=== PATIENT | female | born 1930 | race African-American/Black ===

== ENCOUNTER 2019-03-22 13:06 | Inpatient (IN) | payer MEDICARE, MEDICAID ==
[2019-03-22] MEDS ORDERED: Aspirin Chewable 81 MG TAB ONE (13:30)
[2019-03-22] MEDS ORDERED: Nitroglycerin 2% Ointment 1 INCH/1 GM Packet ONE (13:30)
[2019-03-22] MEDS ORDERED: Ondansetron PF 4 MG/2 ML Vial ONE (13:30)
--- NOTE | 2019-03-22 13:55 | CT ---
Exam: Head CT without contrast HISTORY: 8. Hypertension. Nausea and generalized weakness. COMPARISON: 08/20/2016 FINDINGS: Hemorrhage: No intraparenchymal hemorrhage or extra-axial hematoma. Brain parenchyma: Cortical brown-white matter differentiation is preserved. No mass effect or midline shift. Basilar cisterns are patent. Ventricular system: Ventricles and sulci are patent and symmetric. Calvarium: Intact. Sinuses and mastoid air cells: Adequate aeration. IMPRESSION: No acute intracranial process.
[2019-03-22 14:00] LABS: #Basophils 0.1 thou/uL (0.0-0.2); #Eosinphils 0.1 thou/uL (0.0-0.7); #Lymphocytes 1.2 thou/uL (1.20-3.40); #Monocytes 0.3 thou/uL (0.11-0.59); #Neutrophils 5.3 thou/uL (1.40-6.50); %Basophils 0.7 % (0.0-1.0); %Eosinophils 1.3 % (0.0-10.0); %Lymphocytes 17.8 % (21.0-51.0); %Monocytes 4.4 % (0.0-10.0); %Neutrophils 75.8 % (42.0-75.0); Hemoglobin 8.7 g/dL (12.0-16.0); Mean Corpuscular HGB CONC 32.2 g/dL (32.0-36.0); Mean Corpuscular Hemoglobin 28.6 pg (27.0-31.0); Mean Corpuscular Volume 88.9 fL (78.0-98.0); Mean Platelet Volume 8.9 fL (7.4-10.4); Platelet Count 237 thou/uL (130-400); RBC Distribution Width 15.1 % (11.5-14.5); Red Blood Cell (RBC) Count 3.05 mill/uL (4.20-5.40); White Blood Cell (WBC) Count 6.9 thou/uL (4.8-10.8)
[2019-03-22 14:14] LABS: ALT (SGPT) Less than 7 U/L (8-55); AST (SGOT) 11 U/L (5-34); Albumin 3.4 g/dL (3.4-4.8); Alkaline Phosphatase 66 U/L (40-110); Anion Gap 11 mmol/L (10-20); BUN (Urea Nitrogen) 30 mg/dL (9.8-20.1); Bilirubin, Total 0.3 mg/dL (0.2-1.2); Calc. Creatinine Clearance 0 mL/min (70-130); Carbon Dioxide 23 mmol/L (23-31); Chloride 113 mmol/L (98-107); Estimated GFR-MDRD 45; Globulin 3.5 g/dL (2.4-3.5); Glucose 113 mg/dL (83-110); Potassium 4.3 mmol/L (3.5-5.1); Protein, Total 6.9 g/dL (6.0-8.3); Sodium 143 mmol/L (136-145)
--- NOTE | 2019-03-22 14:22 | RAD ---
PA AND LATERAL VIEWS CHEST: Date: 03/22/19 HISTORY: Chest pain, nausea, generalized weakness. FINDINGS: Comparison made with exam of 11/23/16. There are changes of median sternotomy. The heart size is borderline. The aorta is tortuous. The lung s are expanded without lobar consolidation, pneumothoraces, cyril pulmonary edema, or pleural effusio ns. There are degenerative changes in the spine. There are postop changes of valvular replacement. IMPRESSION: No radiographic evidence of acute cardiopulmonary process. POS: TPC
[2019-03-22] MEDS ORDERED: Ondansetron ODT 4 MG TAB SL PRN (20:41)
[2019-03-22] MEDS ORDERED: Ondansetron PF 4 MG/2 ML Vial IVP PRN (20:41)
[2019-03-22] MEDS ORDERED: Labetalol HCl 100 MG/20 ML VIAL SLOW IVP PRN (20:42)
[2019-03-22 21:04] VITALS: BMI 27.5
[2019-03-22 21:28] LABS: Hemoglobin 9.3 g/dL (12.0-16.0)
[2019-03-22 22:04] LABS: CKMB 1.7 ng/mL (0-6.6)
[2019-03-22] MEDS ORDERED: Acetaminophen 325 MG TAB PO PRN (23:44)
[2019-03-22] MEDS ORDERED: Acetaminophen 650 MG Suppository PR PRN (23:44)
[2019-03-22] MEDS ORDERED: hydrALAZINE 20 MG/ML VIAL SLOW IVP SCH (23:45)
[2019-03-22] MEDS ORDERED: Amlodipine 5 MG TAB PO SCH ×2 (23:45)
[2019-03-23] MEDS ORDERED: Dextrose 50% Abboject 50 ML SYRINGE SLOW IVP PRN (00:42)
[2019-03-23] MEDS ORDERED: HumaLOG 300 UNITS/3 ML VIAL SC PRN ×2 (00:42)
[2019-03-23] MEDS ORDERED: Dextrose 5% in Water 1,000 ML IV PRN (00:42)
--- NOTE | 2019-03-23 01:32 | HP ---
TIME OF ASSESSMENT: 2100. PRIMARY CARE PHYSICIAN: Dr. Willis. CHIEF COMPLAINT: Chest pain. HISTORY OF PRESENT ILLNESS: Ms. Carson is a very pleasant 88-year-old woman, who presents after experiencing chest pain. The patient states she had pain since she woke up this morning and states it remained constant. It was in the center of her chest. She also reports abdominal bloating, but denies any associated nausea or vomiting. Denies any difficulty breathing. Did not experience any associated diaphoresis. She states the pain was nonradiating and she states she is unable to describe it nor rate how severe it was. She states it frightened her enough to call EMS and while en route, she does not recall if she was given any medications, but she states on arrival to the emergency department, the pain had subsided. It has not recurred since then. She reports feeling hunger pains at this present time with mild nausea. Denies having any cough or hemoptysis. Denies having any trauma to her chest. Reports having headaches on and off for the last couple of days with occasional dizziness which she attributes to her elevated blood pressure. The patient states she has been compliant with her medications. Reports being seen by trust and estates paralegal in the past, but cannot recall his name. PAST MEDICAL HISTORY: 1. Coronary artery disease. 2. Diabetes mellitus, insulin-dependent. 3. Hyperlipidemia. 4. Hypertension. 5. Dementia. 6. Reports having a tumor in her abdomen, which was removed. PAST SURGICAL HISTORY: 1. CABG. 2. Tumor excised from abdomen. SOCIAL HISTORY: The patient lives alone. Denies any alcohol consumption or illicit drug use. Denies any history of tobacco use. She mobilizes independently without the use of assistive devices. FAMILY HISTORY: Noncontributory. ALLERGIES: NO KNOWN DRUG ALLERGIES. CURRENT MEDICATIONS: 1. Allopurinol. 2. Amlodipine besylate. 3. Aspirin. 4. Donepezil. 5. Uloric. 6. Gabapentin. 7. Integra. 8. Levothyroxine. 9. Simvastatin. PHYSICAL EXAMINATION: GENERAL: The patient appears well developed, well nourished. She is resting comfortably in bed and is in no acute distress. VITAL SIGNS: Temperature 98.1, pulse 52, respirations 18, O2 saturation 100% on room air. Blood pressure at the time of assessment was documented as 108/75. Since then, this was corrected at 2300 to 180/75. HEENT: Normocephalic and atraumatic. Pupils are equal, round, reactive to light. Sclerae without icterus. Oropharynx is clear. NECK: Supple. LUNGS: Clear to auscultation bilaterally. CARDIAC: Notable for a click. S1 and S2. No chest wall tenderness. ABDOMEN: Soft, nontender, nondistended. Normoactive bowel sounds present. No guarding or rigidity. No renal angle tenderness. EXTREMITIES: No lower leg swelling or edema. NEUROLOGIC: Alert and oriented x3. SKIN: Without rash or jaundice. LABORATORY DATA: White blood count 6.9, hemoglobin done at noon was 8.7, hematocrit 27.1, platelets 237. Sodium 143, potassium 4.3, chloride 113, anion gap 11, BUN 30, creatinine 1.34. GFR 45, which appears to be at baseline. Glucose 113, calcium 9. LFTs unremarkable. BNP 227.9. IMAGING STUDIES: The patient did have an EKG done in the emergency department showing normal sinus with a heart rate of 54. No ST changes or T-wave abnormalities. Chest x-ray done on 03/22/2019, showed no radiographic evidence of acute cardiopulmonary process. CT of the brain was done as well showing no acute intracranial process. Apparently, this was due to hypertension associated with nausea and generalized weakness. IMPRESSION AND PLAN: Ms. Carson is a very pleasant 88-year-old woman, who has been referred for management of the following. 1. Chest pain rule out. EKG was normal in the ED. She was given 324 mg of aspirin as well as Nitro-Bid 1 inch. The patient remains pain free and has had no recurring pain since medications given. Initial troponin was checked by the emergency department at 1333. No further troponins checked since then; therefore, I did add a stat troponin and will continue to trend. Stress test ordered. We will initiate gentle hydration given underlying chronic kidney disease, which appears to be at baseline. 2. Headache with nausea. The patient underwent a CT of the head, which was unremarkable. I did receive notification from the nurse regarding elevated blood pressure of 171/74 at 2356. The patient was given evening dose of her amlodipine. It was at that time that the nurse verified the previously documented low blood pressure of 108/75 was incorrect and in fact 180/75. The amlodipine was not given until blood pressure was reconfirmed. 3. Dizziness. I was notified at 2356 that the patient did complain of some lightheadedness when going to the bathroom. I have added orthostatic blood pressures. Again, she will be receiving gentle IV hydration. She is currently on continuous telemetry monitoring. Urinalysis and urine culture added on. She had a low hemoglobin of 8.7 on initial blood tests, therefore that was repeated and stayed essentially stable at 9.3. We will continue to monitor. The patient without any signs or symptoms of bleeding. 4. Diabetes mellitus. Insulin sliding scale has been initiated. Monitor blood glucose. 5. Hyperlipidemia. Resume home medications. Lipid panel to be checked in the morning. 6. Gastrointestinal prophylaxis with famotidine. 7. Deep venous thrombosis prophylaxis with mechanical SCDs. 8. Code status, full. Surrogate decision maker is her niece, Laura Henry. The patient's case to be discussed with attending for further recommendations. Job ID: [id number]
[2019-03-23] MEDS: Sodium Chloride 0.9% 1,000 ML IV SCH ×2 (01:48→21:07)
[2019-03-23 01:59] LABS: CKMB 1.8 ng/mL (0-6.6)
[2019-03-23 04:41] LABS: #Basophils 0.1 thou/uL (0.0-0.2); #Eosinphils 0.2 thou/uL (0.0-0.7); #Lymphocytes 1.6 thou/uL (1.20-3.40); #Monocytes 0.4 thou/uL (0.11-0.59); #Neutrophils 3.8 thou/uL (1.40-6.50); %Basophils 1.1 % (0.0-1.0); %Monocytes 6.9 % (0.0-10.0); %Neutrophils 62.9 % (42.0-75.0); Hemoglobin 7.9 g/dL (12.0-16.0); Mean Corpuscular HGB CONC 30.9 g/dL (32.0-36.0); Mean Corpuscular Hemoglobin 27.6 pg (27.0-31.0); Mean Corpuscular Volume 89.3 fL (78.0-98.0); Platelet Count 238 thou/uL (130-400); RBC Distribution Width 15.1 % (11.5-14.5); Red Blood Cell (RBC) Count 2.85 mill/uL (4.20-5.40); White Blood Cell (WBC) Count 6.1 thou/uL (4.8-10.8)
[2019-03-23 05:06] LABS: Anion Gap 10 mmol/L (10-20); BUN (Urea Nitrogen) 31 mg/dL (9.8-20.1); Calc. Creatinine Clearance 33 mL/min (70-130); Calcium 8.6 mg/dL (7.8-10.44); Carbon Dioxide 24 mmol/L (23-31); Cardiac Risk 3.6 (Less than 4.5); Chloride 112 mmol/L (98-107); Cholesterol 195 mg/dl (< 200 Desired); Estimated GFR-MDRD 46; Glucose 160 mg/dL (83-110); HDL Cholesterol 54 mg/dL (>60 Neg Risk); Iron 35 ug/dL (50-170); Iron Binding Capacity, Total 251 mcg/dL (265-497); LDL Cholesterol, Calculated 122 mg/dL; Sodium 142 mmol/L (136-145); Triglycerides 94 mg/dL (Less than 150)
[2019-03-23 05:23] LABS: Ferritin 22.48 ng/mL (10-291); Thyroid Stimulating Hormone 1.1089 uIU/mL (0.35-4.94)
[2019-03-23] MEDS: Levothyroxine Sodium 50 MCG TAB PO SCH (05:52)
[2019-03-23 07:48] LABS: Bacteria/HPF 1+ HPF (None Seen); Bilirubin Negative (Negative); Blood, Urine Negative (Negative); Clarity Clear (Clear); Glucose, Urine (Dipstick) Normal (Negative); Leukocyte 250 Leu/uL (Negative); Nitrite Negative (Negative); Protein, Urine (Dipstick) Negative (Neg-Trace); RBC/HPF 0-3 HPF (0-3); Urobilinogen Normal mg/dL (Less than 2); WBC/HPF 21-50 HPF (0-3)
[2019-03-23 07:49] LABS: Urine Culture Reflex No No
[2019-03-23] MEDS ORDERED: Amlodipine 5 MG TAB PO SCH (09:00)
[2019-03-23] MEDS ORDERED: Aspirin 325 MG TAB PO SCH (09:00)
[2019-03-23] MEDS: Allopurinol 100 MG TAB PO SCH (09:26)
[2019-03-23] MEDS: Multivitamin W/ Minerals 1 TAB PO SCH (09:26)
[2019-03-23] MEDS: Gabapentin 300 MG CAP PO SCH ×2 (09:27→21:06)
[2019-03-23] MEDS: Donepezil HCl 10 MG TAB PO SCH (09:27)
[2019-03-23] MEDS: Famotidine/PF 20 mg/2ml Vial SLOW IVP SCH (09:28)
[2019-03-23] MEDS: Febuxostat 40 MG TAB PO SCH (09:28)
[2019-03-23] MEDS: Iron, Sodium Ferric Gluconate 250 MG in Sodium Chloride 0.9% 100 ML IVPB SCH (15:44)
[2019-03-23] MEDS: hydrALAZINE 20 MG/ML VIAL SLOW IVP PRN ×2 (16:31→21:06)
--- NOTE | 2019-03-23 17:19 | CON ---
DATE OF CONSULTATION: 03/23/2019 REASON FOR CONSULTATION: Chest pain. HISTORY OF PRESENT ILLNESS: Ms. Erick Carson is a very pleasant 88-year-old woman. She has a history of aortic valve replacement and coronary artery bypass grafting in the past. Yesterday, she complained of some pain in the middle of her chest and also reported abdominal bloating. No nausea or vomiting. The patient does appear to have some dementia, now she tells me she can actually remember having chest pain yesterday. She called the EMS and was brought to the hospital. The patient did not get breakfast or has not had lunch at 1:30 in the afternoon and she said she is hungry and she wants to eat. PAST MEDICAL HISTORY: 1. Coronary artery disease. 2. Previous aortic valve replacement for aortic stenosis. 3. Diabetes. 4. Hypertension. 5. Dementia. The patient states that she has a physician in [place], but does not know, the last time she saw the physician, or what his name is. PAST SURGICAL HISTORY: 1. She did undergo surgery in 12/2010. 2. She had an aortic valve replacement with a #21 Magna valve (bioprosthetic). 3. Bypass x2, internal mammary to distal LAD and a saphenous vein graft to an obtuse marginal. The posterolateral branch is very small and not felt to be amenable to bypass and also a limited amount of conduit. SOCIAL HISTORY: She lives with her niece. She says that her niece takes care of the house and cooks for her. The patient states she is unable to get up and around much due to "my head and my legs." She said she does not really get around very much at all. FAMILY HISTORY: Noncontributory. ALLERGIES: NONE KNOWN. CURRENT MEDICATIONS: 1. Allopurinol. 2. Amlodipine. 3. Aspirin. 4. Uloric. 5. Gabapentin. 6. Simvastatin. 7. Levothyroxine. PHYSICAL EXAMINATION: GENERAL: This is a very pleasant elderly woman, very cooperative. VITAL SIGNS: Her blood pressure is high at 172/72, pulse is in the 50s and at times in the 40s, she did have a 2-second pause. MENTAL STATUS: She is very cooperative. She knows her name. She knows she is in the hospital in [place], but does not know the name. She does not know what year it is or what month. NECK: Her neck veins are normal. Carotid had normal upstrokes and no bruits. LUNGS: Clear. CARDIAC: Normal S1 and normal S2. ABDOMEN: Soft and nontender. EXTREMITIES: Warm and dry. No clubbing or cyanosis. There is no edema. PERIPHERAL PULSES: The femoral pulses are palpable, but very difficult to feel, but I do not feel popliteal or posterior tibial pulses or dorsalis pedis pulses. PERTINENT LABORATORY DATA: Hemoglobin is 8.7 on admission and 7.9 this morning. Creatinine 1.33 and estimated GFR 45 reported, which would correlate with stage 3 renal failure. EKG; sinus bradycardia, T-wave inversions in the inferior leads. The patient's most recent LDL cholesterol is 122. Troponin is indeterminate at 0.043. ASSESSMENT: 1. Coronary artery disease, previous bypass surgery and internal mammary to the LAD, saphenous vein graft to marginal branch in 2000. 2. Previous aortic valve replacement with bioprosthetic valve for aortic stenosis. 3. Chest pain, but the patient does not recall having that now. 4. Some element of sick sinus syndrome. 5. Indeterminate troponin. 6. Anemia, which appears iron deficient. The ferritin is low at 22.48. 7. Peripheral vascular disease with decreased peripheral pulses. 8. Dementia. The patient is oriented to person and she knows she is in the hospital in [place]. She does not know the name, does not know the date or the year. PLAN: 1. Echocardiogram is pending. 2. Continue aspirin. 3. Continue statin. 4. Intravenous iron for iron-deficiency anemia. 5. Further recommendations based on hospital course and also discussing goals of therapy with the family. Tentatively, we will schedule for stress testing tomorrow to see if there is evidence of stress-induced ischemia. Job ID: [id number]
--- NOTE | 2019-03-23 18:34 | PDOC.HOSPP ---
- Subjective Subjective: Doing well. No complaints. Denies CP. - Objective Vital Signs & Weight: Vital Signs (12 hours) Temp Pulse Pulse Pulse Resp BP BP 03/23/19 17:16 03/23/19 15:44 98.2 F 92 17 03/23/19 10:57 97.4 F L 56 L 14 03/23/19 08:53 63 55 L 149/65 H 140/63 03/23/19 07:45 98.5 F 58 L 20 BP Pulse Ox 03/23/19 17:16 160/72 H 03/23/19 15:44 187/94 H 100 03/23/19 10:57 172/72 H 100 03/23/19 08:53 03/23/19 07:45 121/57 L 99 Weight Weight 158 lb I&O: 03/22/19 03/23/19 03/24/19 06:59 06:59 06:59 Intake Total 1664 Output Total 400 Balance 1264 Result Diagrams: 03/23/19 03:51 03/23/19 03:51 Additional Labs: Accuchecks 03/23/19 03/23/19 03/23/19 16:08 11:06 05:52 POC Glucose 149 H 119 H 132 H Hospitalist ROS - Medication Medications: Active Medications Generic Name Dose Route Start Last Admin Trade Name Simba PRN Reason Stop Dose Admin Allopurinol 100 mg 03/23/19 09:00 03/23/19 09:26 Zyloprim PO 100 mg DAILY TYRONE Administration Donepezil HCl 10 mg 03/23/19 09:00 03/23/19 09:27 Aricept PO 10 mg DAILY TYRONE Administration Famotidine 20 mg 03/23/19 09:00 03/23/19 09:28 Pepcid SLOW IVP 20 mg QAM TYRONE Administration Febuxostat 40 mg 03/23/19 09:00 03/23/19 09:28 Uloric PO 40 mg DAILY TYRONE Administration Gabapentin 300 mg 03/23/19 09:00 03/23/19 09:27 Neurontin PO 300 mg BID TYRONE Administration Hydralazine HCl 10 mg 03/23/19 16:10 03/23/19 16:31 Apresoline SLOW IVP 10 mg Q4H PRN Administration Hypertension Sodium Chloride 1,000 mls @ 50 mls/hr 03/23/19 01:00 03/23/19 01:48 Normal Saline 0.9% IV 1,000 mls .Q20H TYRONE Administration Ferric Sodium Gluconate 120 mls @ 60 mls/hr 03/23/19 14:00 03/23/19 15:44 Complex 250 mg/ Sodium IVPB 03/24/19 03:59 120 mls Chloride 0200,1400 TYRONE Administration Iron/Minerals/Multivitamins 1 tab 03/23/19 09:00 03/23/19 09:26 Theragran M PO 1 tab DAILY TYRONE Administration Levothyroxine Sodium 50 mcg 03/23/19 06:00 03/23/19 05:52 Synthroid PO 50 mcg 0600 TYRONE Administration - Exam General Appearance: NAD, awake alert Heart: RRR, murmur present (Systolic, LLSB), II/IV Respiratory: CTAB, no wheezes, no rales, no ronchi, normal chest expansion, no tachypnea, normal percussion Gastrointestinal: soft, non-tender, non-distended, normal bowel sounds, no palpable masses, no hepatomegaly, no splenomegaly, no bruit Skin: normal turgor Musculoskeletal: normal tone Psychiatric: normal affect Psychiatric - other findings: slight confusion Hosp A/P (1) Chest pain Code(s): R07.9 - CHEST PAIN, UNSPECIFIED Status: Acute (2) CAD (coronary artery disease) Code(s): I25.10 - ATHSCL HEART DISEASE OF [place] CORONARY ARTERY W/O ANG PCTRS Status: Chronic (3) Dementia Code(s): F03.90 - UNSPECIFIED DEMENTIA WITHOUT BEHAVIORAL DISTURBANCE Status: Chronic (4) Diabetes mellitus type 2, uncontrolled, with complications Code(s): E11.8 - TYPE 2 DIABETES MELLITUS WITH UNSPECIFIED COMPLICATIONS; E11.65 - TYPE 2 DIABETES MELLITUS WITH HYPERGLYCEMIA Status: Chronic (5) HLD (hyperlipidemia) Code(s): E78.5 - HYPERLIPIDEMIA, UNSPECIFIED Status: Chronic (6) Hypertension Code(s): I10 - ESSENTIAL (PRIMARY) HYPERTENSION Status: Chronic (7) Hypothyroid Code(s): E03.9 - HYPOTHYROIDISM, UNSPECIFIED Status: Chronic (8) CKD (chronic kidney disease), stage III Code(s): N18.3 - CHRONIC KIDNEY DISEASE, STAGE 3 (MODERATE) Status: Acute (9) Aortic valve prosthesis present Code(s): Z95.2 - PRESENCE OF PROSTHETIC HEART VALVE Status: Acute - Plan Followed by Dr. Pablo. Presently stable with no CP. Stress test planned for tomorrow. Echo looks pretty good overall. Continue Statin Continue Levothyroxine. Continue amlodipine.
[2019-03-23] MEDS: Atorvastatin Calcium 20 MG TAB PO SCH (21:06)
[2019-03-24] MEDS: Iron, Sodium Ferric Gluconate 250 MG in Sodium Chloride 0.9% 100 ML IVPB SCH (02:16)
[2019-03-24 04:48] LABS: #Basophils 0.1 thou/uL (0.0-0.2); #Eosinphils 0.3 thou/uL (0.0-0.7); #Lymphocytes 1.7 thou/uL (1.20-3.40); #Monocytes 0.4 thou/uL (0.11-0.59); #Neutrophils 4.1 thou/uL (1.40-6.50); %Basophils 1.2 % (0.0-1.0); %Eosinophils 4.3 % (0.0-10.0); %Lymphocytes 25.5 % (21.0-51.0); %Monocytes 6.4 % (0.0-10.0); %Neutrophils 62.7 % (42.0-75.0); Hemoglobin 8.3 g/dL (12.0-16.0); Mean Corpuscular HGB CONC 31.5 g/dL (32.0-36.0); Mean Corpuscular Hemoglobin 28.4 pg (27.0-31.0); Mean Corpuscular Volume 90.2 fL (78.0-98.0); Mean Platelet Volume 10.6 fL (7.4-10.4); Platelet Count 155 thou/uL (130-400); RBC Distribution Width 15.2 % (11.5-14.5); Red Blood Cell (RBC) Count 2.93 mill/uL (4.20-5.40); White Blood Cell (WBC) Count 6.6 thou/uL (4.8-10.8)
[2019-03-24] MEDS: Levothyroxine Sodium 50 MCG TAB PO SCH (05:45)
[2019-03-24] MEDS: hydrALAZINE 20 MG/ML VIAL SLOW IVP PRN (05:45)
--- NOTE | 2019-03-24 12:15 | NM ---
CARDIAC SPECT: CLINICAL HISTORY: 88-year-old female with chest pain, coronary artery disease, status post CABG, AVR, hypertension, scott betes, and dyslipidemia. TECHNIQUE: A myocardial perfusion scan was performed using the single isotope two day protocol with 30 mCi techn etium-99m sestamibi injected intravenously for both stress and rest images. Pharmacologic stress with Lexiscan was monitored and interpreted by Dr. Quintana. FINDINGS: Homogeneous tracer distribution is seen in the myocardial segments on stress and rest images without fixed or reversible defects. GATED SPECT LVEF: 74%. WALL MOTION EXAM: Normal. IMPRESSION: Normal myocardial perfusion scan. POS: OFF
[2019-03-24] MEDS: Allopurinol 100 MG TAB PO SCH (12:23)
[2019-03-24] MEDS: Gabapentin 300 MG CAP PO SCH ×2 (12:24→20:39)
[2019-03-24] MEDS: Multivitamin W/ Minerals 1 TAB PO SCH (12:24)
[2019-03-24] MEDS: Famotidine/PF 20 mg/2ml Vial SLOW IVP SCH (12:24)
[2019-03-24] MEDS: Aspirin Chewable 81 MG TAB PO SCH (12:24)
[2019-03-24] MEDS: Donepezil HCl 10 MG TAB PO SCH (12:24)
[2019-03-24] MEDS: Febuxostat 40 MG TAB PO SCH (12:26)
[2019-03-24] MEDS: Sodium Chloride 0.9% 1,000 ML IV SCH (12:42)
[2019-03-24] MEDS ORDERED: Regadenoson 0.4 MG/5 ML SYRINGE ONE (13:19)
[2019-03-24] MEDS ORDERED: Amlodipine 5 MG TAB PO SCH (17:00)
--- NOTE | 2019-03-24 17:16 | PRG ---
DATE OF SERVICE: 03/24/2019 SUBJECTIVE: Ms. Carson is doing well. No chest pain or pressure. OBJECTIVE: VITAL SIGNS: Her blood pressure is 154/69, pulse 60 and regular. LUNGS: Clear. CARDIAC: Normal S1. Normal S2. Stress test is normal. No ischemia. ASSESSMENT: 1. Previous valve replacement with bypass surgery. 2. Negative stress test. PLAN: 1. Add proton pump inhibitors. 2. She received intravenous iron. 3. Resume amlodipine. 4. Okay to me to be released home at any time. ADDENDUM: Ms. Carson will change amlodipine to 10 mg each morning instead of 5 mg twice a day to try to simplify her medicines. Job ID: [id number]
[2019-03-24] MEDS: Atorvastatin Calcium 20 MG TAB PO SCH (20:39)
[2019-03-24] MEDS ORDERED: Famotidine 20 MG TAB PO SCH (21:00)
--- NOTE | 2019-03-24 22:23 | PDOC.HOSPP ---
- Subjective Subjective: Feels ok. No complaints. No chest pain. - Objective Vital Signs & Weight: Vital Signs (12 hours) Temp Pulse Pulse Pulse Resp BP BP 03/24/19 19:10 98.3 F 61 16 03/24/19 17:24 62 03/24/19 16:23 97.8 F 59 L 18 03/24/19 15:40 67 65 192/79 H 180/72 H 03/24/19 12:29 03/24/19 12:00 97.9 F 72 20 BP BP BP Pulse Ox 03/24/19 19:10 149/66 H 99 03/24/19 17:24 03/24/19 16:23 154/69 H 97 03/24/19 15:40 03/24/19 12:29 149/65 H 03/24/19 12:00 170/67 H 100 Weight Weight 158 lb I&O: 03/23/19 03/24/19 03/25/19 06:59 06:59 06:59 Intake Total 1784 950 Output Total 1500 1175 Balance 284 -225 Result Diagrams: 03/24/19 04:08 03/23/19 03:51 Additional Labs: Accuchecks 03/24/19 03/24/19 03/24/19 20:39 17:19 12:21 POC Glucose 227 H 149 H 257 H 03/24/19 05:57 POC Glucose 135 H Hospitalist ROS - Medication Medications: Active Medications Generic Name Dose Route Start Last Admin Trade Name Freq PRN Reason Stop Dose Admin Allopurinol 100 mg 03/23/19 09:00 03/24/19 12:23 Zyloprim PO 100 mg DAILY TYRONE Administration Aspirin 81 mg 03/24/19 09:00 03/24/19 12:24 Aspirin Chewable PO 81 mg DAILY TYRONE Administration Atorvastatin Calcium 20 mg 03/23/19 21:00 03/24/19 20:39 Lipitor PO 20 mg HS TYRONE Administration Donepezil HCl 10 mg 03/23/19 09:00 03/24/19 12:24 Aricept PO 10 mg DAILY TYRONE Administration Famotidine 20 mg 03/23/19 09:00 03/24/19 12:24 Pepcid SLOW IVP 20 mg QAM TYRONE Administration Famotidine 20 mg 03/24/19 21:00 03/24/19 20:39 Pepcid PO 20 mg BID TYRONE Administration Febuxostat 40 mg 03/23/19 09:00 03/24/19 12:26 Uloric PO 40 mg DAILY TYRONE Administration Gabapentin 300 mg 03/23/19 09:00 03/24/19 20:39 Neurontin PO 300 mg BID TYRONE Administration Hydralazine HCl 10 mg 03/23/19 16:10 03/24/19 05:45 Apresoline SLOW IVP 10 mg Q4H PRN Administration Hypertension Insulin Human Lispro 0 units 03/23/19 00:42 03/24/19 12:22 Humalog SC 4 unit .MILD SLIDING SCALE PRN Administration Mild Correctional Scale Iron/Minerals/Multivitamins 1 tab 03/23/19 09:00 03/24/19 12:24 Theragran M PO 1 tab DAILY TYRONE Administration Levothyroxine Sodium 50 mcg 03/23/19 06:00 03/24/19 05:45 Synthroid PO 50 mcg 0600 TYRONE Administration Sodium Chloride 10 ml 03/22/19 23:44 03/24/19 20:39 Flush - Normal Saline IVF 10 ml Q12HR PRN Administration Saline Flush - Exam General Appearance: NAD Neck: supple, symmetric, no JVD, no thyromegaly, no lymphadenopathy, no carotid bruit Heart: murmur present, II/IV Respiratory: CTAB, no wheezes, no rales, no ronchi, normal chest expansion, no tachypnea, normal percussion Gastrointestinal: soft, non-tender, non-distended, normal bowel sounds, no palpable masses, no hepatomegaly, no splenomegaly, no bruit Skin: normal turgor Neurological: no focal deficits Musculoskeletal: normal tone Psychiatric: normal affect, normal behavior Hosp A/P (1) Chest pain Code(s): R07.9 - CHEST PAIN, UNSPECIFIED Status: Acute (2) CAD (coronary artery disease) Code(s): I25.10 - ATHSCL HEART DISEASE OF [place] CORONARY ARTERY W/O ANG PCTRS Status: Chronic (3) Dementia Code(s): F03.90 - UNSPECIFIED DEMENTIA WITHOUT BEHAVIORAL DISTURBANCE Status: Chronic (4) Diabetes mellitus type 2, uncontrolled, with complications Code(s): E11.8 - TYPE 2 DIABETES MELLITUS WITH UNSPECIFIED COMPLICATIONS; E11.65 - TYPE 2 DIABETES MELLITUS WITH HYPERGLYCEMIA Status: Chronic (5) HLD (hyperlipidemia) Code(s): E78.5 - HYPERLIPIDEMIA, UNSPECIFIED Status: Chronic (6) Hypertension Code(s): I10 - ESSENTIAL (PRIMARY) HYPERTENSION Status: Chronic (7) Hypothyroid Code(s): E03.9 - HYPOTHYROIDISM, UNSPECIFIED Status: Chronic (8) CKD (chronic kidney disease), stage III Code(s): N18.3 - CHRONIC KIDNEY DISEASE, STAGE 3 (MODERATE) Status: Acute (9) Aortic valve prosthesis present Code(s): Z95.2 - PRESENCE OF PROSTHETIC HEART VALVE Status: Acute - Plan Followed by Dr. Pablo. Presently stable with no CP. Stress test negative. Echo looks pretty good overall. Continue Statin Continue Levothyroxine. Continue amlodipine. Discussed with Dr. Pablo. Will plan DC in am. Patient apparently lives alone in [facility]. Need to make sure she can safely get home and consider HH fro a brief time.
[2019-03-25] MEDS: Levothyroxine Sodium 50 MCG TAB PO SCH (05:26)
[2019-03-25 07:30] VITALS: BP 150/64; TEMP 98.2
[2019-03-25] MEDS: Gabapentin 300 MG CAP PO SCH (08:21)
[2019-03-25] MEDS: Febuxostat 40 MG TAB PO SCH (08:21)
[2019-03-25] MEDS: Donepezil HCl 10 MG TAB PO SCH (08:21)
[2019-03-25] MEDS: Multivitamin W/ Minerals 1 TAB PO SCH (08:21)
[2019-03-25] MEDS: Aspirin Chewable 81 MG TAB PO SCH (08:22)
[2019-03-25] MEDS: Allopurinol 100 MG TAB PO SCH (08:22)
[2019-03-25] MEDS ORDERED: Amlodipine 10 MG TAB PO SCH (09:00)
[2019-03-25] MEDS ORDERED: Famotidine 20 MG TAB PO SCH (21:00)
--- NOTE | 2019-03-27 05:09 | DIS ---
DATE OF ADMISSION: 03/22/2019 DATE OF DISCHARGE: 03/25/2019 DISCHARGE DIAGNOSES: 1. Chest pain. 2. Coronary artery disease. 3. Mild dementia. 4. Diabetes mellitus. 5. Hyperlipidemia. 6. Hypertension. 7. Hypothyroidism. 8. Chronic kidney disease stage 3. 9. Aortic valve prosthesis. HISTORY AND HOSPITAL COURSE: This patient is an 88-year-old female who presented to the hospital via the emergency department reporting chest pain. EKG was normal. She was given aspirin and nitroglycerin. Initial troponin in the emergency department was negative. She reported some headache and nausea, had a head CT, which was unremarkable. BP was slightly elevated. The patient was admitted to the hospital on telemetry. She had serial troponins, which were peaking at 0.55, but did not follow a physiologic pattern and were felt to be benign. Her GFR was in the mid 40s consistent with her prior numbers. She had iron studies showing iron level of 35, TIBC of 251, and ferritin of 22.48. Dr. Pablo gave the patient a dose of intravenous iron. B12 and folate were normal. TSH was normal. Cholesterol panel revealed LDL of 122, HDL of 54 with a risk ratio of 3.6. She underwent a stress test with Nuclear Medicine, which was negative for ischemia and reported an EF of 74%. Echocardiogram was obtained revealing an EF of 55% to 60%, mild MR, normally functioning aortic bioprosthetic valve, mild TR, mild to moderate elevated pulmonary artery pressures. With that, the patient was felt to be stable for discharge to home. However, it was late in the evening, the patient apparently lives in [place]. The following morning, discussed the situation with the patient. She said she actually lives with a niece who is there to help her and therefore, she was felt to be safe for discharge. On the day of discharge, her temperature is 98.2, pulse 61, respirations 18, O2 saturation 97% on room air, BP 150/64. She is awake and alert. Heart was regular rate and rhythm without murmurs, gallops, or rubs. Lungs are clear to auscultation bilaterally. No wheezes or rales. Abdomen is soft, nontender, and nondistended. Positive bowel sounds. No masses. No organomegaly. The patient is discharged to home. She is on a heart-healthy diet. Her activity level is ad alvin. She will be on pantoprazole 40 mg daily. She will continue with her other medications without change. She will follow up with Dr. Diane Willis, in [address] Pablo in 3 to 4 weeks. She can return to the hospital at anytime should she have the need to do so. Time spent in discharge activities was 35 min. Job ID: [id number] [id number]
--- NOTE | 2019-03-28 08:01 | PQF ---
SAP Inventory Transcriber Crystal Reports Winform Viewer JAYDEN SILVA KAITLYN TAMAYO MD [id number] CLINICAL DOCUMENTATION CLARIFICATION FORM: POST DISCHARGE Addendum to original discharge summary date: ____ Late entry note date: __ DATE: 03/28/2019 ATTN: KAITLYN TAMAYO MD Please exercise your independent, professional judgment in responding to the clarification form. Clinical indicators are provided on the bottom of this form for your review Please check appropriate box(s): [ ] Chest pain due to CAD [ ] Chest pain due to Hypotensive urgency [ ] Chest pain unspecified cause [ ] Other diagnosis [ x ] Unable to determine - patient's dementia is such that she did not recall the chest pain and that makes fully elucidating the source impossible. For continuity of documentation, please document condition throughout progress notes and discharge summary. Thank You. CLINICAL INDICATORS - SIGNS / SYMPTOMS /LABS - Chest pain rule out-H&P, 03/22, Phyllis Garcia PA-C - Chest pain, DS, 03/25, Josette Dias MD - Coronary artery disease- DS, 03/25, Josette Dias MD - Acute hypertensive urgency- ED record, 03/22, Asiya Quiroz MD - BP: 178/72 H, 171/82H, 171/74H- Vital signs 03/23, 03/24 RISK FACTORS - Chronic kidney disease- DS, 03/25, Josette Dias MD - Aortic value prosthesis- DS, 03/25, Josette Dias MD TREATMENTS: - Echocardiogram, 03/23 - Consultation report, 03/23 - Nitroglycerin.[id number] - Sodium chloride.IV-MAR, 03/22 - Aspirin Chewable-MAR, 03/22 (This form is maintained as a part of the permanent medical record) 2014 [employer]. All Rights Reserved Destinee Parisi [not provided] [not provided] MTDD
--- NOTE | 2019-04-07 12:25 | STRESS ---
Acquisition Time: 2019-03-24 10:06:21 Total Exercise Time: 00:01:00 Test Indications: CHEST PAIN Medications: Protocol: LEXISCAN Max HR: 083 BPM 62% of Pred: 133 BPM Max BP: 130/050 mmHG Max Work Load: 1.0 METS THE PATIENT WAS INJECTED WITH LEXISCAN. SHE DID NOT DEVELOP CHEST PAIN. THERE WAS NO SIGNIFICANT ST DEPRESSION. AWAIT NUCLEAR IMAGES FOR DEFINITIVE DIAGNOSIS. Confirmed by KASSIE JARAMILLO ([id number]), editorial specialist STEPHANE LEVY ([id number]) on 04/07/2019 12:24:48 PM Referred By: MD Laverne LUCIO Confirmed By:KASSIE JARAMILLO
--- NOTE | 2019-04-08 15:01 | EKG ---
Test Reason : Blood Pressure : / mmHG Vent. Rate : 054 BPM Atrial Rate : 053 BPM P-R Int : 000 ms QRS Dur : 106 ms QT Int : 478 ms P-R-T Axes : 000 -05 -88 degrees QTc Int : 453 ms Junctional rhythm Septal infarct , age undetermined T wave abnormality, consider inferolateral ischemia Abnormal ECG Confirmed by JAVIER STEELE, PETER ([id number]), editor index PAIGE JHA ([id number]) on 04/08/2019 3:01:20 PM Referred By: Confirmed By:PETER HERRERA MD
== END 2019-03-25 11:25 | disposition home or self-care (01) | DRG 313 ==
LOC: ERS 13:06 → ERHOLD 16:03 → 2NO 20:03
PROVIDERS: ADMIT Internal Medicine; ATTEND Internal Medicine
DX: R07.89 Other chest pain (principal); F03.90 Unspecified dementia, unspecified severity, without behavioral disturbance, psychotic disturbance, mood disturbance, and anxiety; E78.5 Hyperlipidemia, unspecified; I12.9 Hypertensive chronic kidney disease with stage 1 through stage 4 chronic kidney disease, or unspecified chronic kidney disease; E11.22 Type 2 diabetes mellitus with diabetic chronic kidney disease; E03.9 Hypothyroidism, unspecified; D63.1 Anemia in chronic kidney disease; E11.51 Type 2 diabetes mellitus with diabetic peripheral angiopathy without gangrene; I49.5 Sick sinus syndrome; I16.0 Hypertensive urgency; I25.10 Atherosclerotic heart disease of native coronary artery without angina pectoris; N18.3 Chronic kidney disease, stage 3 (moderate); Z79.4 Long term (current) use of insulin; Z95.2 Presence of prosthetic heart valve; Z95.1 Presence of aortocoronary bypass graft
CPT/HCPCS: 36415; 36416; 70450; 71046; 78452; 80048; 80053; 80061; 81001; 82553; 82607; 82728; 82746; 83540; 83550; 83735; 83880; 84443; 84484; 85025; 93005; 93017; 93306; 96374; A9500; J0360; J2405; J2785; J2916; J3490; S0028

== ENCOUNTER 2019-11-09 18:31 | Inpatient (IN) | payer MEDICARE, MEDICAID ==
[2019-11-09] MEDS ORDERED: hydrALAZINE 20 MG/ML VIAL ONE (19:31)
[2019-11-09 19:40] LABS: CKMB 1.9 ng/mL (0-6.6)
--- NOTE | 2019-11-09 20:04 | PDOC.HHP ---
Hospitalist HPI - History of Present Illness Syncope/bradycardia ED Course: Patient with PMH of dementia, hypothyroidism, HTN, HLD and CAD s/p CABG presents to the ED for evaluation of possible syncopal event and noted bradycardia. Patient is unable to provide much details given underlying dementia. She tells me she is here because she was told she fell. She does not recall having any preceding symptoms such as lightheadedness/dizziness, palpitations, chest discomfort or shortness of breath. During my assessment she tells me she feels well without any type of complaints. Per EHR review she was noted to be bradycardic in the 40s. Currently telemetry registering HRs in the high 50s-60s. Initial ED evaluation reveals EKG with sinus bradycardia and non specific TW changes but no obvious evidence of ischemia. Troponin is marginal at 0.05. Hospitalist ROS - Review of Systems Constitutional: denies: fever, chills, weakness Eyes: denies: pain, vision change ENT: denies: ear pain, ear discharge, nose congestion Respiratory: denies: cough, shortness of breath, SOB with excertion, pleuritic pain, sputum Cardiovascular: denies: chest pain, palpitations, paroxysmal noc. dyspnea Gastrointestinal: denies: nausea, vomiting, abdominal pain Genitourinary: denies: dysuria, frequency, incontinence Musculoskeletal: denies: neck pain, shoulder pain, arm pain, back pain Skin: denies: rash, lesions Neurological: denies: weakness, numbness, incoordination, change in speech, confusion, seizures - Exam General Appearance: NAD, awake alert Eye: PERRL, anicteric sclera ENT: normocephalic atraumatic Neck: supple, symmetric, no JVD Heart: RRR (HRs in the 60s during exam), no murmur, no rubs Respiratory: CTAB, no wheezes, no rales, no ronchi, normal chest expansion Gastrointestinal: soft, non-tender, non-distended, normal bowel sounds Extremities: no cyanosis, no clubbing, no edema Skin: normal turgor Neurological: cranial nerve grossly intact, normal sensation to touch, no weakness Musculoskeletal: normal tone, normal strength, no muscle wasting Psychiatric: normal affect, normal behavior, A&O x 3, oriented to person Hospitalist Results - Labs Lab results: CK-MB (CK-2) 1.9 ng/mL (0-6.6) 11/09/19 18:50 Troponin I 0.051 ng/mL (< 0.028) H 11/09/19 18:50 Hospitalist H&P A/P - Plan Plan: Problem List 1. Syncopal event 2. Uncontrolled hypertension 3. History of CAD 4. Diabetes mellitus 5. Hyperlipidemia6. History of hypothyroidims 6. Dementia Assessment/Plan 1. Syncopal event - admit patient for observation - unclear history; patient with dementia - presently asymptomatic; HRs in the 60s - metoprolol listed as home medication - continue to monitor telemetry - check orthostatic vital signs - echocardiogram in AM - hold beta sami for now - cardiology consult pending above 2. Uncontrolled hypertension - noted to be hypertensive in the 190s - will await orthostatic vital signs for further recs - resume home medications for now except metoprolol 3. History of CAD - marginal elevation of troponin - patient asymptomatic - trend cardiac enzymes & check echo - continue with ASA, statin, hold BB 4. Diabetes mellitus - appears to have hx of DM - start ISS - awaiting med rec 5. Hyperlipidemia - continue with statin 6. History of hypothyroidims - check TSH - continue with synthroid 7. Dementia - aricept on rare occasions can lead to syncope - monitor closely DVT PPX: HepSQ. FULL CODE
[2019-11-09] MEDS ORDERED: Ondansetron PF 4 MG/2 ML Vial IVP PRN ×2 (20:11→21:42)
[2019-11-09] MEDS ORDERED: Acetaminophen 325 MG TAB PO PRN ×2 (20:11→21:42)
[2019-11-09] MEDS ORDERED: Dextrose 5% in Water 1,000 ML IV PRN ×2 (20:20→21:42)
[2019-11-09] MEDS ORDERED: HumaLOG 300 UNITS/3 ML VIAL SC PRN ×2 (20:20→21:42)
[2019-11-09] MEDS ORDERED: Dextrose 50% Abboject 50 ML SYRINGE SLOW IVP PRN ×2 (20:20→21:42)
[2019-11-09] MEDS ORDERED: Heparin 5,000 UNITS/ML VIAL SC SCH (21:00)
[2019-11-09] MEDS ORDERED: Simvastatin 40 MG TAB PO SCH ×2 (21:00→21:30)
[2019-11-09] MEDS ORDERED: Amlodipine 5 MG TAB PO SCH (21:00)
[2019-11-09] MEDS ORDERED: Gabapentin 300 MG CAP PO SCH (21:00)
[2019-11-09 21:43] VITALS: BMI 24.5
[2019-11-10 00:21] LABS: CKMB 2.2 ng/mL (0-6.6)
[2019-11-10] MEDS: Levothyroxine Sodium 50 MCG TAB PO SCH (05:02)
[2019-11-10] MEDS: Aspirin 325 MG TAB PO SCH (08:43)
[2019-11-10] MEDS: Gabapentin 300 MG CAP PO SCH ×2 (08:44→20:40)
[2019-11-10] MEDS: Amlodipine 5 MG TAB PO SCH ×2 (08:44→20:40)
[2019-11-10] MEDS: Donepezil HCl 10 MG TAB PO SCH (08:44)
[2019-11-10] MEDS: Heparin 5,000 UNITS/ML VIAL SC SCH ×3 (08:44→20:40)
[2019-11-10] MEDS: Febuxostat 40 MG TAB PO SCH (08:53)
[2019-11-10] MEDS ORDERED: Aspirin 325 MG TAB PO SCH (09:00)
[2019-11-10] MEDS ORDERED: Donepezil HCl 10 MG TAB PO SCH (09:00)
[2019-11-10] MEDS ORDERED: Levothyroxine Sodium 50 MCG TAB PO SCH (09:00)
[2019-11-10] MEDS ORDERED: Febuxostat 40 MG TAB PO SCH (09:00)
[2019-11-10 10:27] LABS: #Eosinphils 0.1 thou/uL (0.0-0.7); #Lymphocytes 1.3 thou/uL (1.20-3.40); #Monocytes 0.4 thou/uL (0.11-0.59); #Neutrophils 4.2 thou/uL (1.40-6.50); %Basophils 0.4 % (0.0-1.0); %Eosinophils 1.6 % (0.0-10.0); %Lymphocytes 22.2 % (21.0-51.0); %Monocytes 6.3 % (0.0-10.0); %Neutrophils 69.6 % (42.0-75.0); Hemoglobin 9.9 g/dL (12.0-16.0); Mean Corpuscular HGB CONC 31.6 g/dL (32.0-36.0); Mean Corpuscular Volume 91.6 fL (78.0-98.0); Platelet Count 139 thou/uL (130-400); RBC Distribution Width 16.7 % (11.5-14.5); Red Blood Cell (RBC) Count 3.43 mill/uL (4.20-5.40)
[2019-11-10 10:38] LABS: Anion Gap 12 mmol/L (10-20); BUN (Urea Nitrogen) 27 mg/dL (9.8-20.1); Calc. Creatinine Clearance 27 mL/min (70-130); Calcium 8.9 mg/dL (7.8-10.44); Carbon Dioxide 22 mmol/L (23-31); Chloride 113 mmol/L (98-107); Estimated GFR-MDRD 40; Glucose 240 mg/dL (83-110); Magnesium 2.3 mg/dL (1.6-2.6); Potassium 4.7 mmol/L (3.5-5.1); Sodium 142 mmol/L (136-145)
[2019-11-10] MEDS ORDERED: Digoxin 0.5 MG/2 ML AMP SLOW IVP SCH (12:15)
[2019-11-10] MEDS ORDERED: hydrALAZINE 20 MG/ML VIAL SLOW IVP PRN (12:17)
--- NOTE | 2019-11-10 12:22 | PDOC.HOSPP ---
- Subjective Encounter Date: 11/10/19 Encounter Time: 09:10 Subjective: Able to have PO intake, denies any dizzy or chest pain. orthostasis +ve, high BP and low pulse - Objective Vital Signs & Weight: Vital Signs (12 hours) Temp Pulse Resp BP BP BP BP 11/10/19 11:00 97.2 F L 64 17 201/77 H 165/72 H 190/78 H 11/10/19 08:00 97.7 F 57 L 18 192/74 H 11/10/19 03:59 97.8 F 55 L 18 141/78 H Pulse Ox 11/10/19 11:00 99 11/10/19 08:00 100 11/10/19 03:59 99 Weight Weight 143 lb 3.2 oz I&O: 11/09/19 11/10/19 11/11/19 06:59 06:59 06:59 Intake Total 240 Balance 240 Result Diagrams: 11/10/19 10:17 11/10/19 10:17 Additional Labs: Accuchecks 11/10/19 11:24 POC Glucose 207 H Hospitalist ROS - Medication Medications: Active Medications Generic Name Dose Route Start Last Admin Trade Name Freq PRN Reason Stop Dose Admin Amlodipine Besylate 5 mg 11/09/19 21:30 11/10/19 08:44 Norvasc PO 5 mg BID TYRONE Administration Aspirin 325 mg 11/10/19 09:00 11/10/19 08:43 Aspirin PO 325 mg DAILY TYRONE Administration Donepezil HCl 10 mg 11/10/19 09:00 11/10/19 08:44 Aricept PO 10 mg DAILY TYRONE Administration Febuxostat 40 mg 11/10/19 09:00 11/10/19 08:53 Uloric PO 40 mg DAILY TYRONE Administration Gabapentin 300 mg 11/09/19 21:30 11/10/19 08:44 Neurontin PO 300 mg BID TYRONE Administration Heparin Sodium (Porcine) 5,000 units 11/10/19 09:00 11/10/19 08:44 Heparin SC 5,000 units TID TYRONE Administration Levothyroxine Sodium 50 mcg 11/10/19 06:00 11/10/19 05:02 Synthroid PO 50 mcg 0600 TYRONE Administration Pantoprazole Sodium 40 mg 11/10/19 09:00 11/10/19 08:44 Protonix PO 40 mg DAILY TYRONE Administration - Exam General Appearance: NAD, awake alert Eye: PERRL ENT: normocephalic atraumatic Neck: supple Heart: RRR Respiratory: CTAB, normal chest expansion Gastrointestinal: soft, normal bowel sounds Neurological: no focal deficits Psychiatric: A&O x 3 Hosp A/P - Plan syncopal event -orthostasis +Ve --cant give IVF as her BP quite high >160 - - echocardiogram--planned - hold beta sami for now - cardiology consult pending above 2. Uncontrolled hypertension - noted to be hypertensive in the 190s -cw norvasc, scheduled and PRN hydralazine --- pulse in 40s - so one dose dig, K Ok; cr. 1.49 3. History of CAD - marginal elevation of troponin - trend cardiac enzymes ---0.05 - continue with ASA, statin, hold BB 4. Diabetes mellitus - start ISS 5. Hyperlipidemia - continue with statin 6. History of hypothyroidims - check TSH - continue with synthroid 7. Dementia - aricept on rare occasions can lead to syncope - monitor closely DVT PPX: HepSQ. FULL CODE
[2019-11-10] MEDS: hydrALAZINE 25 MG TAB PO SCH ×2 (14:47→20:40)
--- NOTE | 2019-11-10 15:52 | CON ---
DATE OF CONSULTATION: 11/10/2019 REASON FOR CONSULTATION: Syncopal episode. HISTORY OF PRESENT ILLNESS: Ms. Carson is a delightful 89-year-old woman. She is brought to the hospital after a syncopal episode. The patient unfortunately does not remember any of this. The patient does have history of some dementia. She tells me that she was in a bathroom and the next thing she knows she was here. Heart rate has been in the low 50s here. The patient knows where she is. She is in the "[facility] She said she lives at home with her niece. No chest pain or pressure. She is unable to give any other history. She does not know the year, but she is very pleasant and conversant. REVIEW OF SYSTEMS: CONSTITUTIONAL: No significant weight gain or loss. VISION: No changes. HEARING: No changes. PULMONARY: No cough or wheezing. GASTROINTESTINAL: No nausea, vomiting, or diarrhea. SKIN: No rashes. NEUROLOGIC: No unilateral weakness or numbness. PSYCHIATRIC: No unusual depression or anxiety. PAST HISTORY: Previous coronary artery bypass grafting. PHYSICAL EXAMINATION: GENERAL: This is a delightful elderly woman. She is very pleasant, alert. VITAL SIGNS: Her blood pressure is high at 200/70, earlier it was 140/80; pulse 60, it is regular. LUNGS: Clear. CARDIAC: Normal S1. Normal S2. ABDOMEN: Soft and nontender. EXTREMITIES: Warm and dry. No clubbing. No cyanosis. No edema. DIAGNOSTIC DATA: EKG revealed sinus bradycardia. There was a single pause of 2 seconds this afternoon. No other significant bradycardia. Heart rates in the low 50s. EKG, sinus rhythm, possible old septal infarct. ASSESSMENT: 1. Probable syncopal episode, but the patient really is unable to give much history due to dementia. 2. Sick sinus syndrome with heart rate in the low 50s and a 2-second pause, but not really low enough yet to justify pacemaker insertion. 3. Stage 3 renal failure. Creatinine 1.49, estimated GFR is 40. PLAN: 1. Echocardiogram is being done now. 2. Continue to monitor. If the patient has significant bradycardia, pacemaker insertion would be indicated. We will follow with you during this hospitalization. Job ID: [id number]
[2019-11-11] MEDS: Levothyroxine Sodium 50 MCG TAB PO SCH (06:15)
[2019-11-11] MEDS: Donepezil HCl 10 MG TAB PO SCH (08:02)
[2019-11-11] MEDS: Aspirin 325 MG TAB PO SCH (08:02)
[2019-11-11] MEDS: Gabapentin 300 MG CAP PO SCH (08:02)
[2019-11-11] MEDS: hydrALAZINE 25 MG TAB PO SCH (08:02)
[2019-11-11] MEDS: Febuxostat 40 MG TAB PO SCH (08:02)
[2019-11-11] MEDS: Amlodipine 5 MG TAB PO SCH (08:02)
[2019-11-11] MEDS: Heparin 5,000 UNITS/ML VIAL SC SCH ×2 (08:03→15:46)
[2019-11-11] MEDS ORDERED: Allopurinol 100 MG TAB PO SCH (09:00)
[2019-11-11] MEDS ORDERED: Sodium Chloride 0.9% 1,000 ML IV SCH (13:00)
--- NOTE | 2019-11-11 13:12 | PRG ---
DATE OF SERVICE: 11/11/2019 SUBJECTIVE: Ms. Carson is doing well. She is sitting up, eating. No complaints. OBJECTIVE: VITAL SIGNS: Her blood pressure is variable at 115/56 sitting, 117/58 standing, 141/65 supine. LUNGS: Clear. CARDIAC: Normal S1, normal S2. ABDOMEN: Soft, nontender. Looking at the monitor, the lowest heart rates been in the high 40s along with sinus pauses 2 seconds. ASSESSMENT: Possible syncopal episode, orthostatic hypotension versus bradycardia, but we really have not seen enough bradycardia to justify pacemaker insertion. PLAN: Okay with me to be released home. We will send her an event monitor to wear at home. If she has significant bradycardia, pacemaker will be indicated, but at the present time, the heart rates have really not been low enough to justify a pacemaker. Her echocardiogram showed normal left ventricular function with normal ejection fraction. Job ID: [id number]
[2019-11-11 15:56] VITALS: BP 167/71; TEMP 97.5
--- NOTE | 2019-11-11 16:26 | PDOC.HOSPP ---
- Subjective Encounter Date: 11/11/19 Encounter Time: 07:00 Subjective: no overnight events. This morning feeling well and has no complaints. Has orthostatic hypotension - Objective Vital Signs & Weight: Vital Signs (12 hours) Temp Pulse Pulse Pulse Pulse Pulse Resp 11/11/19 15:45 97.5 F L 55 L 18 11/11/19 10:50 53 L 65 64 61 11/11/19 10:20 97.2 F L 52 L 17 11/11/19 09:25 55 L 74 11/11/19 08:02 73 11/11/19 08:00 97.7 F 63 17 11/11/19 07:51 BP BP BP BP BP BP BP 11/11/19 15:45 158/68 H 166/70 H 167/71 H 11/11/19 10:50 135/60 133/60 132/63 156/67 H 11/11/19 10:20 115/56 L 117/58 L 141/65 H 11/11/19 09:25 148/63 H 144/63 H 11/11/19 08:02 11/11/19 08:00 150/68 H 11/11/19 07:51 Pulse Ox 11/11/19 15:45 100 11/11/19 10:50 11/11/19 10:20 99 11/11/19 09:25 11/11/19 08:02 11/11/19 08:00 99 11/11/19 07:51 99 Weight Admit Weight 143 lb 3.2 oz Weight 146 lb 8 oz I&O: 11/10/19 11/11/19 11/12/19 06:59 06:59 06:59 Intake Total 240 960 Balance 240 960 Result Diagrams: 11/10/19 10:17 11/10/19 10:17 Additional Labs: Accuchecks 11/11/19 11/11/19 11/10/19 10:27 05:56 20:15 POC Glucose 147 H 130 H 176 H 11/10/19 11/10/19 17:03 06:02 POC Glucose 156 H 124 H Hospitalist ROS - Review of Systems Constitutional: denies: fever, chills, sweats, weakness, malaise, other Respiratory: denies: cough, dry, shortness of breath, hemoptysis, SOB with excertion, pleuritic pain, sputum, wheezing, other Cardiovascular: denies: chest pain, palpitations, orthopnea, paroxysmal noc. dyspnea, edema, light headedness, other Gastrointestinal: denies: nausea, vomiting, abdominal pain, diarrhea, constipation, melena, hematochezia, other - Medication Medications: Active Medications Generic Name Dose Route Start Last Admin Trade Name Simba PRN Reason Stop Dose Admin Allopurinol 100 mg 11/11/19 09:00 11/11/19 08:02 Zyloprim PO 100 mg DAILY TYRONE Administration Amlodipine Besylate 5 mg 11/09/19 21:30 11/11/19 08:02 Norvasc PO 5 mg BID TYRONE Administration Aspirin 325 mg 11/10/19 09:00 11/11/19 08:02 Aspirin PO 325 mg DAILY TYRONE Administration Donepezil HCl 10 mg 11/10/19 09:00 11/11/19 08:02 Aricept PO 10 mg DAILY TYRONE Administration Febuxostat 40 mg 11/10/19 09:00 11/11/19 08:02 Uloric PO 40 mg DAILY TYRONE Administration Gabapentin 300 mg 11/09/19 21:30 11/11/19 08:02 Neurontin PO 300 mg BID TYRONE Administration Heparin Sodium (Porcine) 5,000 units 11/10/19 09:00 11/11/19 15:46 Heparin SC 5,000 units TID TYRONE Administration Levothyroxine Sodium 50 mcg 11/10/19 06:00 11/11/19 06:15 Synthroid PO 50 mcg 0600 TYRONE Administration Pantoprazole Sodium 40 mg 11/10/19 09:00 11/11/19 08:02 Protonix PO 40 mg DAILY TYRONE Administration Simvastatin 40 mg 11/09/19 21:30 11/10/19 20:40 Zocor PO 40 mg HS TYRONE Administration - Exam General Appearance: NAD, awake alert Neck: no JVD Heart: RRR, no murmur, no gallops, no rubs Respiratory: CTAB, no wheezes, no rales, no ronchi Gastrointestinal: soft, non-tender, non-distended, normal bowel sounds Extremities: no edema Hosp A/P - Plan #syncope/presyncope #orthostatic hypotension -cardiac workup -ve; telemetry bradycardia with pauses per cardiology insufficienct to explain symptoms -IVF bolus -recheck orthostatic BP -stopped hydralazine, started lisinopril for lesser propensity for orthostatic hypotension and due to multiple indications (CAD, CKD) otherwise, management unchanged ELOS: either DC later today or tomorrow
[2019-11-12] MEDS ORDERED: Lisinopril 10 MG TAB PO SCH (09:00)
--- NOTE | 2019-11-13 06:28 | DIS ---
DATE OF ADMISSION: 11/10/2019 DATE OF DISCHARGE: 11/11/2019 HOSPITAL COURSE: Ms. Carson is an 89-year-old female with medical history of hypertension, coronary artery disease, status post CABG, and dementia, who presented for an unwitnessed syncopal event. In the ED, she was found to be bradycardic. Cardiology was consulted and diagnosed the patient with sick sinus syndrome in addition to 2-second pauses. The patient was outfitted with an event monitor and followup appointment with Cardiology. The patient also had orthostatic hypotension that responded to fluids. She was discharged home where she lives with her niece and family, hemodynamically stable with no complaints. PHYSICAL EXAMINATION: VITAL SIGNS: Blood pressure 167/71, temperature 97.5, pulse 55, respiratory rate 18, and oxygen saturation 100% on room air. GENERAL APPEARANCE: Lying comfortably in bed, in no apparent distress. CARDIAC: Regular rhythm, bradycardic, no murmurs or rubs. LUNGS: Clear to auscultation bilaterally. No wheezing, rales, or rhonchi. ABDOMEN: Soft and nontender. EXTREMITIES: No edema. PSYCHIATRIC: Proper mood and affect. Alert and oriented x1, which is apparently her baseline. MEDICATION LIST: New medications: Lisinopril 10 mg p.o. daily. Discontinued medications: None. Modified medications: None. In addition to the medications, the patient was provided with written educational material in regarding to lisinopril, lifestyle modifications for hypertension, and instructions regarding proper fluid intake. Job ID: [id number]
--- NOTE | 2019-11-14 07:19 | PQF ---
JAYDEN SILVA, ROMY [id number] [id number] [id number] CLINICAL DOCUMENTATION CLARIFICATION FORM: POST DISCHARGE Addendum to original discharge summary date: ____ Late entry note date: __ DATE: 11/14/2019 ATTN:Romy Carrillo Please exercise your independent, professional judgment in responding to the clarification form. Clinical indicators are provided on the bottom of this form for your review Please check appropriate box(s): Syncope Due to: [ ] SSS [x ] Orthostatic hypotension [ ] Uncontrolled HTN Please specify if: [ ] HTN crisis [ ] HTN urgency [ ] HTN emergency [ ] Unspecified [ ] Other diagnosis [ ] Unable to determine For continuity of documentation, please document condition throughout progress notes and discharge summary. Thank You. CLINICAL INDICATORS - SIGNS / SYMPTOMS / LABS DS 11/10 "she was found to be bradycardic" DS 11/10 "presented for an unwitnessed syncopal event" DS 11/10 "SSS in addition to 2-second pauses" DS 11/10 "The patient also had orthostatic hypotension" PN 11/09 "possible syncopal episode, othrostatic hypotension vs bradycardia" Vital Signs Pulse: 11/09=53 11/10=52 Vital Signs BP: 11/0943=823/74 11/1095=986/63 RISK FACTORS 89 years old female-DS 11/10 HTN-DS 11/10 CAD-DS 11/10 Dementia-DS 11/10 DM-HP 11/09 HLD-HP 11/09 Hypothyroidism-HP 11/09 CKD stage 3-Consult 11/09 TREATMENTS Cardiology consult-DS 11/10 IVF-DS 11/10 Hold Beta sami-HP 11/09 Hydralazine 10mg IV-MAR 11/09 Aspirin 325mg Oral-JUL 27 (This form is maintained as a part of the permanent medical record) 2014 [employer]. All Rights Reserved [email or web address] [phone] MTDD
== END 2019-11-11 18:10 | disposition home or self-care (01) | DRG 312 ==
LOC: ERS 18:31 → 2NO 19:40 → ERS 21:22 → OBSVTOIN 11-10 13:01
PROVIDERS: ADMIT Internal Medicine; ATTEND Internal Medicine
DX: I95.1 Orthostatic hypotension (principal); F03.90 Unspecified dementia, unspecified severity, without behavioral disturbance, psychotic disturbance, mood disturbance, and anxiety; E03.9 Hypothyroidism, unspecified; I12.9 Hypertensive chronic kidney disease with stage 1 through stage 4 chronic kidney disease, or unspecified chronic kidney disease; E78.5 Hyperlipidemia, unspecified; I25.10 Atherosclerotic heart disease of native coronary artery without angina pectoris; E11.22 Type 2 diabetes mellitus with diabetic chronic kidney disease; I49.5 Sick sinus syndrome; N18.3 Chronic kidney disease, stage 3 (moderate); Z95.1 Presence of aortocoronary bypass graft; Z91.81 History of falling; Z79.4 Long term (current) use of insulin; Z79.899 Other long term (current) drug therapy
CPT/HCPCS: 36415; 36416; 80048; 82553; 83735; 84443; 85025; 93005; 93306; 94760; 96374; G0378; J0360; J1644

== ENCOUNTER 2020-01-30 16:06 | Inpatient (IN) | payer MEDICARE, MEDICAID, OTHER ==
[2020-01-30] MEDS ORDERED: hydrALAZINE 25 MG TAB ONE (17:07)
[2020-01-30] MEDS ORDERED: Sodium Chloride 0.45% 1,000 ML IV SCH (18:30)
[2020-01-30] MEDS ORDERED: Acetaminophen 650 MG Suppository PR PRN (18:34)
[2020-01-30] MEDS ORDERED: Acetaminophen 325 MG TAB PO PRN (18:34)
[2020-01-30 19:21] VITALS: BMI 26.6
[2020-01-30 20:49] LABS: Hemoglobin 8.1 g/dL (12.0-16.0)
[2020-01-30] MEDS: Amlodipine 5 MG TAB PO SCH (21:06)
[2020-01-30] MEDS: Atorvastatin Calcium 20 MG TAB PO SCH (21:06)
[2020-01-30] MEDS: Pantoprazole 40 MG VIAL IVP SCH (21:07)
[2020-01-30 21:12] LABS: Anion Gap 16 mmol/L (10-20); Carbon Dioxide 13 mmol/L (23-31); Chloride 115 mmol/L (98-107); Potassium 5.9 mmol/L (3.5-5.1); Sodium 138 mmol/L (136-145)
[2020-01-30 21:15] LABS: Troponin I 0.053 ng/mL (< 0.028)
[2020-01-30 21:19] LABS: Troponin I 0.052 ng/mL (< 0.028)
[2020-01-30 22:01] LABS: Lactic Acid 2.2 mmol/L (0.5-2.2)
[2020-01-30] MEDS ORDERED: Dextrose 5% in Water 1,000 ML IV PRN (22:13)
[2020-01-30] MEDS ORDERED: Dextrose 50% Abboject 50 ML SYRINGE SLOW IVP PRN (22:13)
[2020-01-30] MEDS ORDERED: HumaLOG 300 UNITS/3 ML VIAL SC PRN (22:13)
[2020-01-30] MEDS ORDERED: Insulin Regular 300 UNITS/3 ML VIAL IVP SCH (22:45)
[2020-01-30] MEDS: Dextrose 50% Abboject 50 ML SYRINGE SLOW IVP SCH (22:58)
[2020-01-30] MEDS ORDERED: Calcium Gluconate 9.2 MEQ in Sodium Chloride 0.9% 100 ML IVPB SCH (23:00)
[2020-01-30] MEDS ORDERED: Sodium Bicarbonate 150 MEQ in Dextrose 5% in Water 1,000 ML IV SCH (23:00)
--- NOTE | 2020-01-30 23:36 | CT ---
CT BRAIN NONCONTRAST: DATE: 01/30/2020 HISTORY: 89-year-old female with altered mental status and head trauma from multiple falls FINDINGS: There is no evidence of acute intra-axial or extra-axial hemorrhage. There is no midline shift or any other mass effect. There is no extra-axial fluid collection. There is no evidence of obstructive hydrocephalus. Calvarium is intact. There is diffuse brain parenchymal volume loss. There are low att enuation areas in the white matter. These are nonspecific, but in a patient of this age, they are probably chronic ischemic white matter changes due to microvascular atherosclerosis. IMPRESSION: 1) No acute intracranial findings. 2) involutional changes and chronic ischemic white matter changes.
--- NOTE | 2020-01-31 00:10 | HP ---
TIME OF ASSESSMENT: 1800 hours. PRIMARY CARE PHYSICIAN: Dr. Elias. REASON FOR ADMISSION: Syncope and anemia. HISTORY OF PRESENT ILLNESS: Ms. Carson is an 89-year-old woman, who lives with her niece and was brought into the emergency department after having a presyncopal episode while at home. The patient has dementia, therefore, unreliable historian and states she does not recall exactly what happened. She does, however, deny any loss of consciousness or head injury. Denies having any pain at present. Her only complaint is feeling lightheaded on occasion when she stands and having black color stools for the last week. The patient was initially seen at [facility] and according to ED notes, she did not fall, but rather braced herself and was able to be lowered down to the ground with the help of her niece. Notes in the ED indicate that she "passed out." I have been unable to reach her niece in order to obtain an accurate history. The patient has not undergone any CT imaging of her head. She is not on any anticoagulation. Currently, she has no complaints and was found eating her dinner and sitting comfortably in bed. The patient was transferred from [facility] to the emergency department here in order to be admitted for further workup of syncope and acute renal failure. ED course at [facility]: The patient was initially hypotensive with a blood pressure of 109/47, however, this increased to 156/49. Remaining vital signs appeared unremarkable. She had an EKG done, which showed sinus bradycardia with a heart rate of 53, MT of 250 ms, QRS of 106 ms. First-degree AV block noted with ST depression in V4 through V6 with T-wave inversions of V4 through V6, V2, V3, and aVF. EKG was compared to previous EKG from October 2019, and it appeared stable. She had laboratory studies done, which showed white count of 5.3, hemoglobin 7.8, hematocrit 27, platelets 166, neutrophils 71%. Sodium 142, potassium 5.4, chloride 114, bicarb 18, anion gap 15, BUN 50, creatinine 2.25, GFR 25, glucose 147. LFTs unremarkable. Troponin negative. Chest x-ray showed no acute thoracic findings. Median sternotomy sutures seen from prior surgery. The patient has no recollection of what kind of cardiac surgery she has had in the past. She received 500 mL of normal saline and was given 80 mg of IV Protonix due to concerns for GI bleed. Her baseline hemoglobin is 9 and labs showed 7.8. Guaiac was done and negative. ED course at [facility]: Per EMS, the patient had BP of 116/66, sats of 99%, heart rate of 54. She was stable on arrival and asymptomatic; however, blood pressure was significantly elevated at 209/84. EKG was repeated and shows sinus bradycardia with a heart rate of 52. Unifocal PVCs present with inverted T-waves involving leads I, aVL, V5, and V6. ST segments were normal. She was admitted for syncope due to bradycardia and possible GI bleed given anemia. For her blood pressure, she was given 50 mg of hydralazine p.o. in the emergency department. Repeat blood pressure was much improved at 135/58. PAST MEDICAL HISTORY: 1. CAD. 2. Diabetes mellitus. 3. Hyperlipidemia. 4. Hypertension. 5. Dementia. PAST SURGICAL HISTORY: 1. CABG. 2. 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 SOCIAL HISTORY: The patient denies any tobacco use or alcohol consumption. She lives with her niece. Said she walks independently at home. PHYSICAL EXAMINATION: GENERAL: The patient appears well developed, well nourished, is in no acute distress. She is sitting comfortably in bed, eating her dinner. VITAL SIGNS: Temperature 97.9, pulse 62, blood pressure 167/65, and O2 saturation 100% on room air. HEENT: Normocephalic and atraumatic. Pupils are equal, round, and reactive to light. Oropharynx is clear. Oral mucosa is moist. NECK: Supple. LUNGS: Clear to auscultation bilaterally without any wheezes, rales, or rhonchi. CARDIAC: Regular rate and rhythm. ABDOMEN: Soft without any distention or tenderness. No guarding or rigidity. No renal angle tenderness. Well-healed mid abdominal incision. EXTREMITIES: No lower leg swelling or edema. Peripheral pulses normal. SKIN: Warm and dry. INVESTIGATIONS: As mentioned above in HPI. IMPRESSION AND PLAN: Ms. Carson is a very pleasant 89-year-old woman with known history of dementia, who does not recall events today, but then states she did not lose any consciousness or sustained any head injury, but according to ED notes, she "passed out." Unable to reach her niece whom she lives with and may have witnessed the event. She is being admitted for management of the following. 1. Syncope. Possibly secondary to bradycardia. We will continue cardiac monitoring and continue to trend troponins. The patient without any complaints of chest pain. She denies head injury and is atraumatic on exam. Given the fact that the history could not be confirmed with niece as far as whether or not she sustained any head injury, we will obtain CT of the head. We will also order carotid Dopplers. The patient has had an echo recently on November 10, 2019. We will obtain orthostatic blood pressures. 2. Hyperkalemia. The patient with acute kidney injury. This could be elevated due to hemoconcentration. As discussed with Dr. Puente, we will start half-normal saline at 100 mL/h and repeat electrolytes as well as renal function. 3. Anemia. The patient reports black-colored stools for the last week. Hemoglobin is 7.8, baseline is 9.9 three months ago. We will continue Protonix 40 mg IV b.i.d. and follow serial H and H q.6 hours x3. No indication for transfusion at present. We will transfuse if it drops below 7. 4. Diabetes mellitus. We will monitor blood glucose and initiate insulin sliding scale. 5. Coronary artery disease. Resume home medications once verified. 6. Hypertension. Resume home medications as appropriate once verified. We will plan to hold SPARKLE inhibitor. 7. Dementia. Continue to monitor for any neuro changes given potential for head injury earlier today. Currently appears to be at baseline. 8. Gastrointestinal prophylaxis. As mentioned above, the patient will remain on Protonix 40 mg IV b.i.d. 9. Deep venous thrombosis prophylaxis. Mechanical SCDs. 10. Code status: The patient does not have any advanced directives in place. According to the patient, her surrogate decision maker is her niece, Sujatha Zamarripa. No working number on file. 11. Case discussed with Dr. Puente, who agrees upon care as described above. Job ID: [id number]
[2020-01-31] MEDS: hydrALAZINE 20 MG/ML VIAL SLOW IVP PRN ×2 (00:44→23:57)
[2020-01-31] MEDS: Dextrose 50% Abboject 50 ML SYRINGE SLOW IVP SCH (00:57)
[2020-01-31 01:03] LABS: Hemoglobin 8.1 g/dL (12.0-16.0)
[2020-01-31 01:16] LABS: Anion Gap 16 mmol/L (10-20); BUN (Urea Nitrogen) 49 mg/dL (9.8-20.1); Calc. Creatinine Clearance 20 mL/min (70-130); Calcium 9.5 mg/dL (7.8-10.44); Carbon Dioxide 14 mmol/L (23-31); Chloride 116 mmol/L (98-107); Estimated GFR-MDRD 28; Glucose 71 mg/dL (83-110); Magnesium 2.4 mg/dL (1.6-2.6); Potassium 4.8 mmol/L (3.5-5.1); Sodium 141 mmol/L (136-145)
[2020-01-31 04:48] LABS: #Eosinphils 0.1 thou/uL (0.0-0.7); #Lymphocytes 1.6 thou/uL (1.20-3.40); #Monocytes 0.5 thou/uL (0.11-0.59); #Neutrophils 3.9 thou/uL (1.40-6.50); %Basophils 0.8 % (0.0-1.0); %Eosinophils 1.3 % (0.0-10.0); %Lymphocytes 26.2 % (21.0-51.0); %Monocytes 7.6 % (0.0-10.0); %Neutrophils 64.1 % (42.0-75.0); Hemoglobin 8.1 g/dL (12.0-16.0); Mean Corpuscular Hemoglobin 29.7 pg (27.0-31.0); Mean Corpuscular Volume 95.6 fL (78.0-98.0); Mean Platelet Volume 9.4 fL (7.4-10.4); Platelet Count 175 thou/uL (130-400); RBC Distribution Width 15.6 % (11.5-14.5); Red Blood Cell (RBC) Count 2.72 mill/uL (4.20-5.40); White Blood Cell (WBC) Count 6.1 thou/uL (4.8-10.8)
[2020-01-31 05:12] LABS: Anion Gap 13 mmol/L (10-20); BUN (Urea Nitrogen) 48 mg/dL (9.8-20.1); Calc. Creatinine Clearance 20 mL/min (70-130); Calcium 9.2 mg/dL (7.8-10.44); Carbon Dioxide 17 mmol/L (23-31); Chloride 114 mmol/L (98-107); Estimated GFR-MDRD 29; Glucose 111 mg/dL (83-110); Potassium 5.1 mmol/L (3.5-5.1); Sodium 139 mmol/L (136-145)
[2020-01-31] MEDS: Levothyroxine Sodium 50 MCG TAB PO SCH (06:01)
[2020-01-31 07:22] LABS: Hemoglobin 8.9 g/dL (12.0-16.0)
[2020-01-31] MEDS: Donepezil HCl 10 MG TAB PO SCH (09:50)
[2020-01-31] MEDS: Allopurinol 100 MG TAB PO SCH (09:50)
[2020-01-31] MEDS: Amlodipine 5 MG TAB PO SCH ×2 (09:50→20:42)
[2020-01-31] MEDS: Febuxostat 40 MG TAB PO SCH (09:50)
[2020-01-31] MEDS: Pantoprazole 40 MG VIAL IVP SCH ×2 (09:52→20:45)
[2020-01-31 10:04] LABS: Iron 39 ug/dL (50-170); Iron Binding Capacity, Total 246 mcg/dL (265-497)
[2020-01-31 10:16] LABS: Bilirubin Negative (Negative); Blood, Urine Negative (Negative); Clarity Clear (Clear); Glucose, Urine (Dipstick) Normal (Negative); Ketone, Urine Negative (Negative); Leukocyte 75 Leu/uL (Negative); Nitrite Negative (Negative); Protein, Urine (Dipstick) Negative (Neg-Trace); RBC/HPF 0-3 HPF (0-3); Specific Gravity, Urine 1.015 (1.002-1.036); Squamous Epithelial 0-3 HPF (0-3); Urobilinogen Normal mg/dL (Less than 2); WBC/HPF 0-3 HPF (0-3)
[2020-01-31 10:30] LABS: Bacteria/HPF 1+ HPF (None Seen)
[2020-01-31 10:31] LABS: Urine Culture Reflex Yes Yes
[2020-01-31 11:12] LABS: Creatinine, Urine 90.45 mg/dL (47-110); Protein, Urine Random Quant Less than 10 mg/dL (1-14); Sodium, Urine 76 mmol/L (Not Available)
[2020-01-31 11:57] LABS: Urea Nitrogen, Random Urine 621 mg/dl
--- NOTE | 2020-01-31 12:28 | CON ---
DATE OF CONSULTATION: 01/31/2020 SERVICE: Nephrology. REASON FOR CONSULTATION: Acute kidney injury. REQUESTING PHYSICIAN/PROVIDER: EAGLE Lerner CHIEF COMPLAINT: Lightheadedness. HISTORY OF PRESENT ILLNESS: An 89-year-old female admitted on transfer from [facility] to [facility] here for evaluation and treatment of presyncope and anemia. The patient reportedly developed presyncope associated with fall. The patient reportedly was eased to the ground by the niece. She reportedly has been having black stools since about a week. There was no history of nausea, vomiting, hematemesis, dysuria, or hematuria. The patient reported good appetite and intake. History, however, is limited as the patient is a poor historian related to her dementia. She currently denied any symptom, even dizziness or lightheadedness. There was no history of change in bowel habit, diarrhea, nausea, or vomiting. She also denied cough, shortness of breath, or chest pain. In the emergency room, the patient was found to have anemia of 7.8 as well as elevation in creatinine relative to baseline necessitating Nephrology consult. The patient was started on IV fluid therapy as well as Protonix infusion. Blood pressure initially on the low side on presentation is currently trending up. PAST MEDICAL HISTORY: 1. Coronary artery disease. 2. Hypertension. 3. Diabetes mellitus. 4. Dementia. 5. Hyperlipidemia. PAST SURGICAL HISTORY: 1. Coronary artery bypass graft. 2. Tumor resection from the abdomen. FAMILY HISTORY: Could not be obtained due to the patient's condition. SOCIAL HISTORY: The patient lives with the niece. Denied tobacco or alcohol use. ALLERGIES: NO KNOWN DRUG ALLERGIES REPORTED. PRIOR TO HOSPITAL MEDICATIONS: 1. Allopurinol 100 mg p.o. daily. 2. Amlodipine 5 mg p.o. b.i.d. 3. Donepezil 10 mg p.o. daily. 4. Uloric 40 mg p.o. daily. 5. Gabapentin 300 mg p.o. b.i.d. 6. Iron with niacin and vitamin C (Integra) 1 capsule p.o. daily. 7. Levothyroxine 50 mcg p.o. daily. 8. Simvastatin 40 mg p.o. daily at bedtime. 9. Lisinopril 10 mg p.o. daily. CURRENT HOSPITAL MEDICATIONS: 1. Sodium bicarbonate infusion. 2. Allopurinol 100 mg p.o. daily. 3. Amlodipine 5 mg p.o. b.i.d. 4. Lipitor 20 mg p.o. daily at bedtime. 5. Donepezil 10 mg p.o. daily. 6. Uloric 40 mg p.o. daily. 7. Sliding scale insulin. 8. Levothyroxine 50 mcg p.o. daily. 9. Protonix IV 40 mg b.i.d. 10. Acetaminophen p.r.n. for pain. 11. Hydralazine 10 mg IV q.4 hours p.r.n. for hypertension. REVIEW OF SYSTEMS: This is grossly limited due to the patient's condition. However, 12-point review of systems performed was negative other than pertinent positives and negatives included in the history of present illness. PHYSICAL EXAMINATION: VITAL SIGNS: Temperature 98.1, pulse 63, respiratory rate 16, SpO2 of 99% on room air, blood pressure is 166/74. GENERAL: Comfortable, elderly female, in no obvious distress. Afebrile. Anicteric. HEENT: Normocephalic, atraumatic. Oral mucosa is moist. NECK: Supple with no obvious JVD. CARDIOVASCULAR: Regular rhythm and rate with normal heart sounds 1 and 2. The patient is bradycardic. RESPIRATORY: Fair air entry bilaterally with no obvious crackle, rhonchi, or use of accessory muscles. GASTROINTESTINAL: Full, soft, nontender, and nondistended with normal bowel sounds. EXTREMITIES: No trauma with no edema. Distal pulses are palpable. SKIN: Poor skin turgor especially of the legs noted. No rash or erythema appreciated. CENTRAL NERVOUS SYSTEM: Conscious and awake. Oriented to person at least. The patient had memory lapses. Cranial nerves 2 through 12 are grossly intact. DIAGNOSTIC DATA: Hemoglobin and hematocrit at 7:12 a.m. showed a hemoglobin of 8.9 and hematocrit 27.4. CBC performed earlier on today at 4:24 a.m. showed WBC 6.1, hemoglobin 8.1, hematocrit 26.0, MCV 95.6, and platelet 175. Of note, on presentation to the ER on January 29, hemoglobin was 7.8. On November 10, 2019, hemoglobin was 9.9. Chemistry earlier this morning showed sodium 139, potassium 5.1, chloride 114, CO2 of 17, BUN 48, creatinine 1.99, glucose 111, calcium 9.2. Cardiac markers showed CK-MB 2.[address] scan of the brain showed no acute intracranial finding. However, involutional changes and chronic ischemic white matter changes were noted. ASSESSMENT: 1. Acute kidney injury: Most likely due to hemodynamic factors related to volume depletion from gastrointestinal bleeding and poor oral intake as well as effect of lisinopril. On November 09, creatinine was 1.49, but on presentation yesterday, creatinine is 2.25 and that has improved with IV fluid to 1.99. 2. Chronic kidney disease, stage 3 to 4. 3. Anemia: This is acute on chronic. The patient has chronic anemia with hemoglobin ranging from 9 to 10, but currently dropped down to 7.8. Iron deficiency is a concern as well as contribution from chronic kidney disease. The patient clearly had reported black stool, which may be chronic. 4. Presumed volume depletion. 5. Presyncope: Most likely due to volume depletion from presumed gastrointestinal bleed and use of antihypertensives. PLAN: 1. We will get urinalysis as well as urine electrolytes. 2. Agree with sodium bicarbonate infusion due to metabolic acidosis and volume depletion. 3. We will also get iron chemistry with a view to replete any if indicated. 4. GI bleeding treatment as per primary attending. 5. We will monitor intake and output as well as renal function and electrolytes. Many thanks for involving us in the care of this patient. We will follow along with you. We will also get orthostatic vitals. We will plan on starting antihypertensives if blood pressure remains consistently elevated. Job ID: [id number]
[2020-01-31] MEDS: HumaLOG 300 UNITS/3 ML VIAL SC PRN (12:32)
[2020-01-31 13:04] LABS: SARS-CoV-2 MS2 Positive; SARS-CoV-2 N Gene Negative; SARS-CoV-2 S Gene Negative; SARS-CoV-2 by NAA Not Detected (NotDetected); SARS-CoV-2 orf1ab Negative
--- NOTE | 2020-01-31 14:43 | CON ---
DATE OF CONSULTATION: REASON FOR CONSULTATION: Syncope and abnormal EKG. HISTORY OF PRESENT ILLNESS: Ms. Carson is a pleasant 89-year-old woman, who has been seen and evaluated by Dr. Sandra Pablo in the past. She has a history of CAD, status post bypass surgery. She recently presented with syncope and anemia per the notes. She does have underlying dementia and the history is very difficult. She states she has no current complaints except for pain all over. She states the most pain is in her head. No specific chest pain, pressure, or associated symptoms noted. PAST MEDICAL HISTORY: CAD, status post bypass surgery; diabetes mellitus; hyperlipidemia; hypertension and underlying dementia. SOCIAL HISTORY: No current tobacco or alcohol use. REVIEW OF SYSTEMS: Ten-point review of systems is reviewed, but difficult to obtain due to underlying dementia. PHYSICAL EXAMINATION: GENERAL: She is very pleasant but somewhat confused. VITAL SIGNS: Blood pressure 163/63, pulse 60, temperature 98.3. NEUROLOGIC: The patient is alert and oriented x3 with no focal neurologic deficits. HEENT: Sclerae without icterus. Mouth has moist mucous membranes with normal pallor. NECK: No JVD. Carotid upstroke brisk. No bruits bilaterally. LUNGS: Clear to auscultation with unlabored respirations. BACK: No scoliosis or kyphosis. CARDIAC: Regular rate and rhythm with normal S1 and S2. No S3 or S4 noted. No significant rubs, murmurs, thrills, or gallops noted throughout the precordium. PMI is not displaced. There is no parasternal heave. ABDOMEN: Soft, nontender, nondistended. No peritoneal signs present. No hepatosplenomegaly. No abnormal striae. EXTREMITIES: 2+ femoral and 2+ dorsalis pedis pulses. No cyanosis, clubbing, or edema. SKIN: No gross abnormalities. PERTINENT LABORATORY DATA: Initial hemoglobin 7.8, now at 8.9. Creatinine 1.99 with a GFR of 29. IMPRESSION: 1. Syncope. 2. Anemia. 3. Coronary artery disease. 4. Status post bypass surgery. RECOMMENDATIONS: Ms. Carson had a previous hospitalization for syncope in October. She was seen and evaluated by Dr. Sandra Pablo at that time. Certainly, the events surrounding her current episode are difficult. She does have underlying dementia. Heart rate has been in the 50s to 60s. She also has underlying anemia. She may benefit from a 3-week event recorder versus an implantable loop recorder. Her EKG does show ST-T wave changes versus baseline and may be due to underlying demand ischemia. May need a noninvasive stress study to assess for ischemia, although again difficult to assess. Her family is not available and we will try and reach her family for further history. Job ID: [id number]
[2020-01-31] MEDS: Atorvastatin Calcium 20 MG TAB PO SCH (20:43)
--- NOTE | 2020-01-31 20:54 | EKG ---
Test Reason : Blood Pressure : / mmHG Vent. Rate : 057 BPM Atrial Rate : 057 BPM P-R Int : 248 ms QRS Dur : 112 ms QT Int : 448 ms P-R-T Axes : 084 -03 194 degrees QTc Int : 436 ms Sinus bradycardia with 1st degree A-V block Incomplete left bundle branch block T wave abnormality, consider lateral ischemia Abnormal ECG Confirmed by Kandy MCGHEE ([id number]) on 01/31/2020 8:54:50 PM Referred By: ARNAV GUILLERMO Confirmed By:Kandy MCGHEE
[2020-01-31] MEDS ORDERED: Melatonin 3 MG TAB PO PRN (22:22)
[2020-02-01] MEDS: Levothyroxine Sodium 50 MCG TAB PO SCH (04:09)
[2020-02-01 05:56] LABS: Albumin 3.3 g/dL (3.4-4.8); Anion Gap 13 mmol/L (10-20); BUN (Urea Nitrogen) 42 mg/dL (9.8-20.1); Calc. Creatinine Clearance 22 mL/min (70-130); Calcium 8.7 mg/dL (7.8-10.44); Carbon Dioxide 18 mmol/L (23-31); Chloride 109 mmol/L (98-107); Estimated GFR-MDRD 31; Glucose 130 mg/dL (83-110); Phosphorus 3.7 mg/dL (2.3-4.7); Potassium 4.7 mmol/L (3.5-5.1); Sodium 135 mmol/L (136-145)
[2020-02-01] MEDS: Sodium Bicarbonate Tab 325 MG TAB PO SCH ×2 (08:58→22:47)
[2020-02-01] MEDS: Febuxostat 40 MG TAB PO SCH (08:58)
[2020-02-01] MEDS: Pantoprazole 40 MG VIAL IVP SCH ×2 (08:59→22:47)
[2020-02-01] MEDS: Allopurinol 100 MG TAB PO SCH (08:59)
[2020-02-01] MEDS: Donepezil HCl 10 MG TAB PO SCH (08:59)
--- NOTE | 2020-02-01 08:59 | PDOC.HOSPP ---
- Subjective Encounter Date: 01/31/20 Encounter Time: 15:00 Subjective: pt up in bed awake and oriented to self. she is very pleasant. - Objective Vital Signs & Weight: Vital Signs (12 hours) Temp Pulse Resp BP BP BP BP 02/01/20 08:41 97.8 F 61 18 145/66 H 135/61 164/72 H 02/01/20 04:00 97.8 F 72 22 H 159/104 H 02/01/20 01:07 73 16 143/61 H 01/31/20 23:57 68 193/79 H 01/31/20 23:17 74 193/99 H Pulse Ox 02/01/20 08:41 100 02/01/20 04:00 100 02/01/20 01:07 01/31/20 23:57 01/31/20 23:17 Weight Weight 147 lb 8 oz I&O: 01/31/20 02/01/20 02/02/20 06:59 06:59 06:59 Intake Total 500 1980 Output Total 225 800 Balance 275 1180 Result Diagrams: 01/31/20 07:12 02/01/20 05:07 Additional Labs: Accuchecks 01/31/20 01/31/20 01/31/20 21:17 16:52 10:41 POC Glucose 166 H 118 H 210 H Hospitalist ROS - Review of Systems Respiratory: denies: cough, dry, shortness of breath, hemoptysis, SOB with excertion, pleuritic pain, sputum, wheezing, other Cardiovascular: denies: chest pain, palpitations, orthopnea, paroxysmal noc. dyspnea, edema, light headedness, other Gastrointestinal: denies: nausea, vomiting, abdominal pain, diarrhea, constipation, melena, hematochezia, other - Medication Medications: Active Medications Generic Name Dose Route Start Last Admin Trade Name Freq PRN Reason Stop Dose Admin Allopurinol 100 mg 01/31/20 09:00 01/31/20 09:50 Zyloprim PO 100 mg DAILY TYRONE Administration Atorvastatin Calcium 20 mg 01/30/20 21:00 01/31/20 20:43 Lipitor PO 20 mg HS TYRONE Administration Donepezil HCl 10 mg 01/31/20 09:00 01/31/20 09:50 Aricept PO 10 mg DAILY TYRONE Administration Febuxostat 40 mg 01/31/20 09:00 01/31/20 09:50 Uloric PO 40 mg DAILY TYRONE Administration Hydralazine HCl 10 mg 01/31/20 00:24 01/31/20 23:57 Apresoline SLOW IVP 10 mg Q4H PRN Administration SBP Greater Than 180 Insulin Human Lispro 0 units 01/30/20 22:13 01/31/20 12:32 Humalog SC 3 unit .MILD SLIDING SCALE PRN Administration Mild Correctional Scale Levothyroxine Sodium 50 mcg 01/31/20 06:00 02/01/20 04:09 Synthroid PO 50 mcg 0600 TYRONE Administration Melatonin 3 mg 01/31/20 22:22 01/31/20 23:17 Melatonin PO 3 mg HS PRN Administration Insomnia Pantoprazole Sodium 40 mg 01/30/20 21:00 01/31/20 20:45 Protonix IVP 40 mg BID TYRONE Administration Sodium Chloride 10 ml 01/30/20 18:34 01/31/20 20:45 Flush - Normal Saline IVF 10 ml Q12HR PRN Administration Saline Flush Sodium Chloride 10 ml 01/30/20 18:34 01/31/20 23:58 Flush - Normal Saline IVF 10 ml PRN PRN Administration Saline Flush - Exam Neck: negative: supple, symmetric, no JVD, no thyromegaly, no lymphadenopathy, no carotid bruit, JVD Heart: negative: RRR, no murmur, no gallops, no rubs, normal peripheral pulses, irregular, diminshed peripheral pulses, murmur present, II/IV, III/IV Respiratory: negative: CTAB, no wheezes, no rales, no ronchi, normal chest expansion, no tachypnea, normal percussion, rales, rhonchi, tachypneic, wheezes Gastrointestinal: negative: soft, non-tender, non-distended, normal bowel sounds , no palpable masses, no hepatomegaly, no splenomegaly, no bruit, no guarding, no rigidity, tender to palpation, distended, diminished bowl sounds, voluntary guarding Hosp A/P (1) Pre-syncope Status: Acute (2) Aortic valve prosthesis present Code(s): Z95.2 - PRESENCE OF PROSTHETIC HEART VALVE Status: Acute (3) CKD (chronic kidney disease), stage III Code(s): N18.3 - CHRONIC KIDNEY DISEASE, STAGE 3 (MODERATE) Status: Acute (4) CAD (coronary artery disease) Code(s): I25.10 - ATHSCL HEART DISEASE OF [place] CORONARY ARTERY W/O ANG PCTRS Status: Chronic (5) Dementia Code(s): F03.90 - UNSPECIFIED DEMENTIA WITHOUT BEHAVIORAL DISTURBANCE Status: Chronic (6) HLD (hyperlipidemia) Code(s): E78.5 - HYPERLIPIDEMIA, UNSPECIFIED Status: Chronic (7) Hypertension Code(s): I10 - ESSENTIAL (PRIMARY) HYPERTENSION Status: Chronic - Plan will order stool for occult blood. Her hh has been low before not new. will consult cardio. orthostatic bp normal. will consult PT.
[2020-02-01] MEDS: hydrALAZINE 25 MG TAB PO SCH ×3 (09:49→22:48)
[2020-02-01] MEDS: Amlodipine 5 MG TAB PO SCH (09:49)
--- NOTE | 2020-02-01 14:20 | PRG ---
DATE OF SERVICE: 02/01/2020 SERVICE: Nephrology. SUBJECTIVE: This is an 89-year-old female with dementia, seen in followup for acute kidney injury and hypertension. The patient was initially admitted due to presyncope in the context of black tarry stool. She has been hemodynamically stable. She has been feeling well, otherwise. Denied nausea or vomiting. Appetite is good. OBJECTIVE: VITAL SIGNS: Temperature ; pulse 61; respiratory rate 18; SpO2 of 100% on room air; and blood pressure is 164/72 supine, 145/66 sitting, and 135/61 standing. I and O in the last 24 hours showed total intake of 1980 with output of 800. GENERAL: Elderly female, in no distress. Afebrile. Anicteric. Acyanotic. HEENT: Normocephalic, atraumatic. Oral mucosa is moist. CARDIOVASCULAR: Regular rhythm and rate with normal heart sounds 1 and 2. RESPIRATORY: Fair air entry bilaterally with no obvious crackle or rhonchi or use of accessory muscles. GASTROINTESTINAL: Full, soft, nontender, and nondistended with normal bowel sounds. EXTREMITIES: Grossly normal looking, atraumatic with no edema or erythema. CENTRAL NERVOUS SYSTEM: Conscious and alert and oriented to person and place. Memory lapse is noted. Cranial nerves II through XII are grossly intact. DIAGNOSTIC DATA: Chemistry today showed sodium 135, potassium 4.7, chloride 109, CO2 of 18, BUN 42, creatinine 1.85, glucose 130, calcium 8.7, phosphorus 3.7, and albumin 3.3. ASSESSMENT: 1. Acute kidney injury: Improving with crystalloid and holding of RAAS sami. 2. Chronic kidney disease, stage 3/4. 3. Metabolic acidosis. 4. Hypertension. 5. Orthostatic hypotension. 6. Anemia: Most likely acute on chronic. PLAN: 1. We will change amlodipine to 10 mg daily. 2. We will also add hydralazine 25 mg t.i.d. 3. We will start sodium bicarbonate due to persistent metabolic acidosis. 4. Anemia evaluation as per primary attending. 5. IV iron therapy is contemplated in view of abnormal iron chemistry. Further treatment to follow depending on hospital course. 6. We will get CBC and BMP in the morning. Job ID: [id number]
[2020-02-01] MEDS ORDERED: Polyethylene Glycol 3350 17 GM Packet PO SCH (15:30)
--- NOTE | 2020-02-01 15:34 | PDOC.HOSPP ---
- Subjective Encounter Date: 02/01/20 - Objective Vital Signs & Weight: Vital Signs (12 hours) Temp Pulse Resp BP BP BP BP 02/01/20 14:53 98.0 F 61 20 142/58 H 02/01/20 13:14 97.9 F 55 L 17 148/66 H 02/01/20 08:41 97.8 F 61 18 145/66 H 135/61 164/72 H 02/01/20 04:00 97.8 F 72 22 H 159/104 H Pulse Ox 02/01/20 14:53 100 02/01/20 13:14 100 02/01/20 08:41 100 02/01/20 04:00 100 Weight Weight 147 lb 8 oz I&O: 01/31/20 02/01/20 02/02/20 06:59 06:59 06:59 Intake Total 500 1980 Output Total 225 800 Balance 275 1180 Result Diagrams: 01/31/20 07:12 02/01/20 05:07 Additional Labs: Accuchecks 02/01/20 01/31/20 01/31/20 13:23 21:17 16:52 POC Glucose 139 H 166 H 118 H Hospitalist ROS - Medication Medications: Active Medications Generic Name Dose Route Start Last Admin Trade Name Freq PRN Reason Stop Dose Admin Allopurinol 100 mg 01/31/20 09:00 02/01/20 08:59 Zyloprim PO 100 mg DAILY TYRONE Administration Amlodipine Besylate 10 mg 02/01/20 09:00 02/01/20 09:49 Norvasc PO Not Given DAILY TYRONE Atorvastatin Calcium 20 mg 01/30/20 21:00 01/31/20 20:43 Lipitor PO 20 mg HS TYRONE Administration Donepezil HCl 10 mg 01/31/20 09:00 02/01/20 08:59 Aricept PO 10 mg DAILY TYRONE Administration Febuxostat 40 mg 01/31/20 09:00 02/01/20 08:58 Uloric PO 40 mg DAILY TYRONE Administration Hydralazine HCl 10 mg 01/31/20 00:24 01/31/20 23:57 Apresoline SLOW IVP 10 mg Q4H PRN Administration SBP Greater Than 180 Hydralazine HCl 25 mg 02/01/20 09:00 02/01/20 14:51 Apresoline PO 25 mg TID TYRONE Administration Insulin Human Lispro 0 units 01/30/20 22:13 01/31/20 12:32 Humalog SC 3 unit .MILD SLIDING SCALE PRN Administration Mild Correctional Scale Levothyroxine Sodium 50 mcg 01/31/20 06:00 02/01/20 04:09 Synthroid PO 50 mcg 0600 TYRONE Administration Melatonin 3 mg 01/31/20 22:22 01/31/20 23:17 Melatonin PO 3 mg HS PRN Administration Insomnia Pantoprazole Sodium 40 mg 01/30/20 21:00 02/01/20 08:59 Protonix IVP 40 mg BID TYRONE Administration Sodium Bicarbonate 650 mg 02/01/20 09:00 02/01/20 08:58 Bicarbonate, Sodium PO 650 mg BID TYRONE Administration Sodium Chloride 10 ml 01/30/20 18:34 01/31/20 20:45 Flush - Normal Saline IVF 10 ml Q12HR PRN Administration Saline Flush Sodium Chloride 10 ml 01/30/20 18:34 01/31/20 23:58 Flush - Normal Saline IVF 10 ml PRN PRN Administration Saline Flush Hosp A/P (1) Pre-syncope Status: Acute (2) Aortic valve prosthesis present Code(s): Z95.2 - PRESENCE OF PROSTHETIC HEART VALVE Status: Acute (3) CKD (chronic kidney disease), stage III Code(s): N18.3 - CHRONIC KIDNEY DISEASE, STAGE 3 (MODERATE) Status: Acute (4) CAD (coronary artery disease) Code(s): I25.10 - ATHSCL HEART DISEASE OF [place] CORONARY ARTERY W/O ANG PCTRS Status: Chronic (5) Dementia Code(s): F03.90 - UNSPECIFIED DEMENTIA WITHOUT BEHAVIORAL DISTURBANCE Status: Chronic (6) HLD (hyperlipidemia) Code(s): E78.5 - HYPERLIPIDEMIA, UNSPECIFIED Status: Chronic (7) Hypertension Code(s): I10 - ESSENTIAL (PRIMARY) HYPERTENSION Status: Chronic - Plan will order stool for occult blood. Her hh has been low before not new. will consult cardio. orthostatic bp normal. will consult PT. 01/31 Her anemia is chronic. Her hh has been stable. her blood pressure is very labile. stool for occult blood has been ordered. pt to undergo stress test.
[2020-02-01] MEDS: HumaLOG 300 UNITS/3 ML VIAL SC PRN (17:52)
[2020-02-01] MEDS: Atorvastatin Calcium 20 MG TAB PO SCH (22:48)
[2020-02-02] MEDS: Levothyroxine Sodium 50 MCG TAB PO SCH (04:28)
[2020-02-02 04:46] LABS: Hemoglobin 8.1 g/dL (12.0-16.0); Mean Corpuscular HGB CONC 30.9 g/dL (32.0-36.0); Mean Corpuscular Hemoglobin 28.8 pg (27.0-31.0); Mean Corpuscular Volume 93.1 fL (78.0-98.0); Mean Platelet Volume 9.4 fL (7.4-10.4); Platelet Count 188 thou/uL (130-400); RBC Distribution Width 15.7 % (11.5-14.5); White Blood Cell (WBC) Count 6.7 thou/uL (4.8-10.8)
[2020-02-02 05:09] LABS: Albumin 3.3 g/dL (3.4-4.8); Anion Gap 12 mmol/L (10-20); BUN (Urea Nitrogen) 42 mg/dL (9.8-20.1); BUN/Creatinine Ratio 21.88; Calc. Creatinine Clearance 21 mL/min (70-130); Calcium 8.4 mg/dL (7.8-10.44); Carbon Dioxide 21 mmol/L (23-31); Chloride 108 mmol/L (98-107); Estimated GFR-MDRD 30; Glucose 117 mg/dL (83-110); Phosphorus 3.7 mg/dL (2.3-4.7); Potassium 5.3 mmol/L (3.5-5.1); Sodium 136 mmol/L (136-145)
--- NOTE | 2020-02-02 11:45 | NM ---
CARDIAC SPECT: CLINICAL HISTORY: 89-year-old female with chest pain, coronary artery disease, CABG, hypertension, diabetes, and dyslip idemia. TECHNIQUE: A myocardial perfusion scan was performed using the single isotope one day protocol with technetium-9 9m sestamibi. 9 mCi were injected intravenously for the rest exam followed by 31 mCi for the stress e xam. Pharmacologic stress with Lexiscan was monitored and interpreted by Dr. Pablo. FINDINGS: Fairly homogeneous tracer distribution is seen in the myocardial segments on stress and rest images w ithout fixed or reversible defects. GATED SPECT LVEF: 73%. WALL MOTION EXAM: Normal. IMPRESSION: Normal myocardial perfusion scan. POS: AH
[2020-02-02] MEDS: Febuxostat 40 MG TAB PO SCH (12:01)
[2020-02-02] MEDS: Donepezil HCl 10 MG TAB PO SCH (12:01)
[2020-02-02] MEDS: Allopurinol 100 MG TAB PO SCH (12:01)
[2020-02-02] MEDS: Sodium Bicarbonate Tab 325 MG TAB PO SCH ×3 (12:01→20:31)
[2020-02-02] MEDS: Amlodipine 5 MG TAB PO SCH (12:01)
[2020-02-02] MEDS: hydrALAZINE 25 MG TAB PO SCH ×3 (12:02→20:31)
[2020-02-02] MEDS: Pantoprazole 40 MG VIAL IVP SCH (12:02)
[2020-02-02] MEDS: Polyethylene Glycol 3350 17 GM Packet PO SCH (12:02)
[2020-02-02] MEDS: HumaLOG 300 UNITS/3 ML VIAL SC PRN (12:07)
--- NOTE | 2020-02-02 13:08 | PRG ---
DATE OF SERVICE: 02/02/2020 SUBJECTIVE: Ms. Carson is doing well. No chest pain or pressure. She is feeling well. She has completed her stress test. OBJECTIVE: VITAL SIGNS: Her blood pressure is 150/60, pulse 65. LUNGS: Clear. CARDIAC: Normal S1, normal S2. ABDOMEN: Soft, nontender. EXTREMITIES: No edema. Stress test was normal and did find some rhythm strips from the office showing multiple pauses up to 2.4 seconds, PACs, and junctional rhythm at a rate of 44. The patient appears to have brief episodes of tachycardia with some bradycardia. ASSESSMENT: 1. Tachycardia-bradycardia syndrome. 2. Recurrent syncope. Recommend that she proceed to pacemaker insertion and tentatively plan this for Wednesday. We will start beta-blockers after the pacemaker is inserted. Job ID: [id number]
--- NOTE | 2020-02-02 13:17 | PRG ---
DATE OF SERVICE: 02/02/2020 SERVICE: Nephrology. SUBJECTIVE: An 89-year-old female with dementia and hypertension, seen in followup for hypertension and acute kidney injury. The patient initially came in due to presyncope and generalized weakness, but has improved. Has been asymptomatic subsequently. Initially reported black stool has not been observed during this hospitalization. OBJECTIVE: VITAL SIGNS: Temperature 97.5, pulse 65, respiratory rate 21, SpO2 99% on room air, and blood pressure is 150/65. GENERAL: Comfortable elderly female, in no obvious distress. Afebrile. HEENT: Normocephalic, atraumatic. Oral mucosa is moist. CARDIOVASCULAR: Regular rhythm and rate with normal heart sounds 1 and 2. RESPIRATORY: Fair air entry bilaterally with no obvious crackle or rhonchi or use of accessory muscles. GI: Full, soft, nontender, nondistended with normal bowel sounds. EXTREMITIES: Grossly normal, looking atraumatic with no overt obvious edema or erythema. NEUROLOGIC: Memory lapses noted. Face is symmetrical. DIAGNOSTIC DATA: CBC today showed WBC count of 6.7, hemoglobin of 8.1, MCV of 93.1, and platelets of 188. Chemistry showed sodium 136, potassium 5.3, chloride 108, CO2 of 21, BUN 42, creatinine 1.92, calcium 8.4, phosphorus 3.7, and albumin 3.3. ASSESSMENT: 1. Acute kidney injury due to hemodynamic factors related to volume depletion and use of RAAS sami. Creatinine has improved from peak of 2.25 to 1.92. Oral intake yesterday was markedly decreased due to planned nuclear stress test, which never took place. 2. Chronic kidney disease, stage 3 to 4. 3. Hyperkalemia. 4. Metabolic acidosis. 5. Hypertension: Control is better, but still suboptimal. The patient has some degree of orthostatic hypotension. 6. Syncope with abnormal EKG. Cardiology following. PLAN: 1. We will give Kayexalate 15 g x1. 2. We will also increase alkali therapy from sodium bicarb 650 b.i.d. to t.i.d. 3. We will also continue current antihypertensive regimen of amlodipine and hydralazine and monitor vitals with a view to adjusting the dose to get adequate BP control. We will also monitor orthostatic vitals due to recurrent syncope episodes. 4. Continue to avoid nephrotoxic agents including RAAS blockers. 5. Recheck renal function test in the morning. Further treatment to follow depending on hospital course. Job ID: [id number]
--- NOTE | 2020-02-02 13:22 | PDOC.HOSPP ---
- Subjective Encounter Date: 02/02/20 - Objective Vital Signs & Weight: Vital Signs (12 hours) Temp Pulse Resp BP Pulse Ox 02/02/20 11:55 97.5 F L 65 21 H 150/65 H 99 02/02/20 08:00 99 02/02/20 04:00 98.2 F 65 18 179/83 H 99 Weight Weight 147 lb 8 oz I&O: 02/01/20 02/02/20 02/03/20 06:59 06:59 06:59 Intake Total 1980 Output Total 800 Balance 1180 Result Diagrams: 02/02/20 04:31 02/02/20 04:31 Additional Labs: Accuchecks 02/02/20 02/02/20 02/01/20 11:56 05:55 21:05 POC Glucose 228 H 114 H 105 02/01/20 02/01/20 16:43 13:23 POC Glucose 208 H 139 H Hospitalist ROS - Medication Medications: Active Medications Generic Name Dose Route Start Last Admin Trade Name Freq PRN Reason Stop Dose Admin Allopurinol 100 mg 01/31/20 09:00 02/02/20 12:01 Zyloprim PO 100 mg DAILY TYRONE Administration Amlodipine Besylate 10 mg 02/01/20 09:00 02/02/20 12:01 Norvasc PO 10 mg DAILY TYRONE Administration Atorvastatin Calcium 20 mg 01/30/20 21:00 02/01/20 22:48 Lipitor PO 20 mg HS TYRONE Administration Donepezil HCl 10 mg 01/31/20 09:00 02/02/20 12:01 Aricept PO 10 mg DAILY TYRONE Administration Febuxostat 40 mg 01/31/20 09:00 02/02/20 12:01 Uloric PO 40 mg DAILY TYRONE Administration Hydralazine HCl 10 mg 01/31/20 00:24 01/31/20 23:57 Apresoline SLOW IVP 10 mg Q4H PRN Administration SBP Greater Than 180 Hydralazine HCl 25 mg 02/01/20 09:00 02/02/20 12:02 Apresoline PO 25 mg TID TYRONE Administration Insulin Human Lispro 0 units 01/30/20 22:13 02/02/20 12:07 Humalog SC 3 unit .MILD SLIDING SCALE PRN Administration Mild Correctional Scale Levothyroxine Sodium 50 mcg 01/31/20 06:00 02/02/20 04:28 Synthroid PO Not Given 0600 TYRONE Melatonin 3 mg 01/31/20 22:22 01/31/20 23:17 Melatonin PO 3 mg HS PRN Administration Insomnia Pantoprazole Sodium 40 mg 01/30/20 21:00 02/02/20 12:02 Protonix IVP 40 mg BID TYRONE Administration Polyethylene Glycol 17 gm 02/02/20 09:00 02/02/20 12:02 Miralax PO 17 gm DAILY TYRONE Administration Sodium Chloride 10 ml 01/30/20 18:34 01/31/20 20:45 Flush - Normal Saline IVF 10 ml Q12HR PRN Administration Saline Flush Sodium Chloride 10 ml 01/30/20 18:34 01/31/20 23:58 Flush - Normal Saline IVF 10 ml PRN PRN Administration Saline Flush Hosp A/P (1) Pre-syncope Status: Acute (2) Aortic valve prosthesis present Code(s): Z95.2 - PRESENCE OF PROSTHETIC HEART VALVE Status: Acute (3) CKD (chronic kidney disease), stage III Code(s): N18.3 - CHRONIC KIDNEY DISEASE, STAGE 3 (MODERATE) Status: Acute (4) CAD (coronary artery disease) Code(s): I25.10 - ATHSCL HEART DISEASE OF [place] CORONARY ARTERY W/O ANG PCTRS Status: Chronic (5) Dementia Code(s): F03.90 - UNSPECIFIED DEMENTIA WITHOUT BEHAVIORAL DISTURBANCE Status: Chronic (6) HLD (hyperlipidemia) Code(s): E78.5 - HYPERLIPIDEMIA, UNSPECIFIED Status: Chronic (7) Hypertension Code(s): I10 - ESSENTIAL (PRIMARY) HYPERTENSION Status: Chronic (8) Hyperkalemia Code(s): E87.5 - HYPERKALEMIA Status: Acute - Plan will order stool for occult blood. Her hh has been low before not new. will consult cardio. orthostatic bp normal. will consult PT. 01/31 Her anemia is chronic. Her hh has been stable. her blood pressure is very labile. stool for occult blood has been ordered. pt to undergo stress test. 02/01 pt's stress test negative, spoke with cardio who reviewed her event monitor and pt will need pacemaker. tried to call niece but her numbers in the chart are not correct. spoke with nursing staff. pt given kayexalate for her hyperkalemia. Her creatinine is at baseline. stool for occult is negative.
[2020-02-02] MEDS ORDERED: Regadenoson 0.4 MG/5 ML SYRINGE ONE (14:10)
[2020-02-02] MEDS: IRON FUM PS CMP PO SCH (19:38)
[2020-02-02] MEDS: VIT C PO SCH (19:38)
[2020-02-02] MEDS: NIACIN PO SCH (19:38)
[2020-02-02] MEDS: Famotidine 20 MG TAB PO SCH (20:31)
[2020-02-02] MEDS: Atorvastatin Calcium 20 MG TAB PO SCH (20:31)
[2020-02-03 04:45] LABS: Anion Gap 12 mmol/L (10-20); BUN (Urea Nitrogen) 37 mg/dL (9.8-20.1); Calc. Creatinine Clearance 23 mL/min (70-130); Calcium 8.4 mg/dL (7.8-10.44); Carbon Dioxide 24 mmol/L (23-31); Chloride 109 mmol/L (98-107); Estimated GFR-MDRD 33; Glucose 105 mg/dL (83-110); Potassium 4.9 mmol/L (3.5-5.1); Sodium 140 mmol/L (136-145)
[2020-02-03] MEDS: Levothyroxine Sodium 50 MCG TAB PO SCH (06:58)
[2020-02-03] MEDS ORDERED: CEFAZOLIN 1 GM VIAL ONE (07:40)
[2020-02-03] MEDS ORDERED: Gentamicin 80 MG/2 ML VIAL ONE (07:40)
[2020-02-03] MEDS ORDERED: Lidocaine 1% (PF) 30 ML VIAL ONE (07:57)
[2020-02-03] MEDS ORDERED: Acetaminophen/Codeine 30-300mg Tablet PO PRN (09:25)
--- NOTE | 2020-02-03 09:50 | RAD ---
Chest one view HISTORY: Pacemaker placement. COMPARISON: 01/30/2020. FINDINGS: Cardiac silhouette is magnified by projection. Pulmonary vasculature are unremarkable. Mediastinum is midline with postoperative changes and aortic calcification. Dual lead left subclavian cardiac electronic device is now in place with leads overlying the right at rium and right ventricle. No evidence of pneumothorax. No lobar consolidation. IMPRESSION : Left subclavian cardiac electronic device is in good radiographic position. Atherosclerosis.
[2020-02-03] MEDS: Amlodipine 5 MG TAB PO SCH (10:43)
[2020-02-03] MEDS: Donepezil HCl 10 MG TAB PO SCH (10:44)
[2020-02-03] MEDS: Allopurinol 100 MG TAB PO SCH (10:44)
[2020-02-03] MEDS: Sodium Bicarbonate Tab 325 MG TAB PO SCH ×3 (10:44→21:30)
[2020-02-03] MEDS: Polyethylene Glycol 3350 17 GM Packet PO SCH (10:44)
[2020-02-03] MEDS: Febuxostat 40 MG TAB PO SCH (10:44)
[2020-02-03] MEDS: hydrALAZINE 25 MG TAB PO SCH ×3 (10:44→21:29)
--- NOTE | 2020-02-03 12:07 | PRG ---
DATE OF SERVICE: 02/03/2020 SERVICE: Nephrology. SUBJECTIVE: An 89-year-old female with dementia, hypertension, diabetes, and CKD, seen in followup for acute kidney injury. The patient is status post pacemaker placement for tachybrady syndrome. No new problem. Denied nausea, vomiting, or shortness of breath. OBJECTIVE: VITAL SIGNS: Temperature 96.6, pulse 65, respiratory rate 20, SpO2 of 94% on room air, blood pressure is 134/62. I and O in the last 24 hours showed total was inconclusive. GENERAL: Comfortable, elderly female, in no distress. Afebrile. Anicteric. Acyanotic. HEENT: Normocephalic, atraumatic. Oral mucosa is moist. CARDIOVASCULAR: Regular rhythm and rate with normal heart sounds 1 and 2. Systolic murmur noted. RESPIRATORY: Fair air entry bilaterally with no obvious crackle or rhonchi or use of accessory muscles. GI: Full, soft, nontender, nondistended with normal bowel sounds. MUSCULOSKELETAL/EXTREMITIES: Left upper chest surgical incision well apposed with pacemaker underneath. EXTREMITIES: Grossly normal without edema or erythema. 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 Memory lapses noted. DIAGNOSTIC DATA: Chemistry showed sodium 140, potassium 4.9, chloride 109, CO2 of 24, BUN 37, creatinine 1.77, glucose 105, calcium 8.4. ASSESSMENT: 1. Acute kidney injury: Creatinine is trending downwards to 1.7 from admission level of 2.25. 2. Chronic kidney disease, stage 3. 3. Tachybrady syndrome, status post pacemaker placement. 4. Hypertension: Control is better. The patient also has orthostatic hypotension. 5. Recurrent syncope: Thought to be due to tachybrady syndrome as well as orthostatic hypotension. 6. Metabolic acidosis: Improved with alkali therapy. 7. Dementia, on treatment. PLAN: 1. [place] oral intake advised. 2. Continue alkali therapy. 3. Monitor renal function. 4. The patient can be discharged from Nephrology point of view to follow up within 2 to 3 weeks with repeat labs. She, however, needs to be on alkali therapy due to advanced CKD. Avoid nephrotoxic agents including RAAS sami at this point. Job ID: [id number]
--- NOTE | 2020-02-03 15:49 | EKG ---
Test Reason : Blood Pressure : / mmHG Vent. Rate : 052 BPM Atrial Rate : 052 BPM P-R Int : 244 ms QRS Dur : 118 ms QT Int : 482 ms P-R-T Axes : 010 -12 224 degrees QTc Int : 448 ms Sinus bradycardia with 1st degree A-V block Cannot rule out Anterior infarct , age undetermined T wave abnormality, consider lateral ischemia Abnormal ECG Confirmed by GIL WILLAMS DO ([id number]), material expeditor GALEN WILSON ([id number]) on 02/03/2020 3:49:00 PM Referred By: Confirmed By:GIL WILLAMS DO
[2020-02-03] MEDS: Atorvastatin Calcium 20 MG TAB PO SCH (21:29)
[2020-02-03] MEDS: Famotidine 20 MG TAB PO SCH (21:30)
--- NOTE | 2020-02-03 21:44 | PDOC.HOSPP ---
- Subjective Encounter Date: 02/03/20 Encounter Time: 11:00 Subjective: no overnight events. this morning, feeling well and has no complaints. - Objective Vital Signs & Weight: Vital Signs (12 hours) Temp Pulse Pulse Pulse Resp BP BP 02/03/20 21:29 95 148/75 H 02/03/20 19:45 02/03/20 16:13 99.3 F 95 18 02/03/20 11:56 98.1 F 68 12 02/03/20 10:58 76 65 145/65 H 02/03/20 10:43 65 178/86 H BP BP BP BP BP Pulse Ox Pulse Ox 02/03/20 21:29 02/03/20 19:45 95 02/03/20 16:13 135/64 139/60 141/64 H 95 02/03/20 11:56 142/65 H 98 02/03/20 10:58 187/76 H 99 02/03/20 10:43 Pulse Ox 02/03/20 21:29 02/03/20 19:45 02/03/20 16:13 02/03/20 11:56 02/03/20 10:58 99 02/03/20 10:43 Weight Weight 147 lb 8 oz Result Diagrams: 02/02/20 04:31 02/03/20 04:12 Additional Labs: Accuchecks 02/03/20 02/03/20 02/03/20 20:26 16:25 10:32 POC Glucose 205 H 197 H 137 H 02/03/20 04:46 POC Glucose 118 H Hospitalist ROS - Review of Systems Constitutional: denies: chills, sweats Respiratory: denies: cough, shortness of breath, pleuritic pain Cardiovascular: denies: chest pain, palpitations, orthopnea Gastrointestinal: denies: nausea - Medication Medications: Active Medications Generic Name Dose Route Start Last Admin Trade Name Freq PRN Reason Stop Dose Admin Allopurinol 100 mg 01/31/20 09:00 02/03/20 10:44 Zyloprim PO 100 mg DAILY TYRONE Administration Amlodipine Besylate 10 mg 02/01/20 09:00 02/03/20 10:43 Norvasc PO 10 mg DAILY TYRONE Administration Atorvastatin Calcium 20 mg 01/30/20 21:00 02/03/20 21:29 Lipitor PO 20 mg HS TYRONE Administration Donepezil HCl 10 mg 01/31/20 09:00 02/03/20 10:44 Aricept PO 10 mg DAILY TYRONE Administration Famotidine 20 mg 02/02/20 21:00 02/03/20 21:30 Pepcid PO 20 mg Q24HR TYRONE Administration Febuxostat 40 mg 01/31/20 09:00 02/03/20 10:44 Uloric PO 40 mg DAILY TYRONE Administration Hydralazine HCl 10 mg 01/31/20 00:24 01/31/20 23:57 Apresoline SLOW IVP 10 mg Q4H PRN Administration SBP Greater Than 180 Hydralazine HCl 25 mg 02/01/20 09:00 02/03/20 21:29 Apresoline PO 25 mg TID TYRONE Administration Insulin Human Lispro 0 units 01/30/20 22:13 02/02/20 12:07 Humalog SC 3 unit .MILD SLIDING SCALE PRN Administration Mild Correctional Scale Levothyroxine Sodium 50 mcg 01/31/20 06:00 02/03/20 06:58 Synthroid PO Not Given 0600 TYRONE Melatonin 3 mg 01/31/20 22:22 01/31/20 23:17 Melatonin PO 3 mg HS PRN Administration Insomnia Polyethylene Glycol 17 gm 02/02/20 09:00 02/03/20 10:44 Miralax PO 17 gm DAILY TYRONE Administration Sodium Bicarbonate 650 mg 02/02/20 15:00 02/03/20 21:30 Bicarbonate, Sodium PO 650 mg TID TYRONE Administration Sodium Chloride 10 ml 01/30/20 18:34 01/31/20 20:45 Flush - Normal Saline IVF 10 ml Q12HR PRN Administration Saline Flush Sodium Chloride 10 ml 01/30/20 18:34 01/31/20 23:58 Flush - Normal Saline IVF 10 ml PRN PRN Administration Saline Flush Sodium Chloride 10 ml 02/02/20 21:00 02/03/20 21:30 Flush - Normal Saline IVF 10 ml Q12HR TYRONE Administration - Exam General Appearance: NAD, awake alert Neck: no JVD Heart: RRR, no gallops, no rubs, murmur present Heart - other findings: left upper thorax incision c/d/i Respiratory: CTAB, no wheezes, no rales, no ronchi Extremities: no edema Psychiatric - other findings: oriented x 0, calm, cooperative Hosp A/P - Plan (1) Pre-syncope Status: Acute (2) Aortic valve prosthesis present Code(s): Z95.2 - PRESENCE OF PROSTHETIC HEART VALVE Status: Acute (3) CKD (chronic kidney disease), stage III Code(s): N18.3 - CHRONIC KIDNEY DISEASE, STAGE 3 (MODERATE) Status: Acute (4) CAD (coronary artery disease) Code(s): I25.10 - ATHSCL HEART DISEASE OF [place] CORONARY ARTERY W/O ANG PCTRS Status: Chronic (5) Dementia Code(s): F03.90 - UNSPECIFIED DEMENTIA WITHOUT BEHAVIORAL DISTURBANCE Status: Chronic (6) HLD (hyperlipidemia) Code(s): E78.5 - HYPERLIPIDEMIA, UNSPECIFIED Status: Chronic (7) Hypertension Code(s): I10 - ESSENTIAL (PRIMARY) HYPERTENSION Status: Chronic (8) Hyperkalemia Code(s): E87.5 - HYPERKALEMIA Status: Acute - Plan will order stool for occult blood. Her hh has been low before not new. will consult cardio. orthostatic bp normal. will consult PT. 01/31 Her anemia is chronic. Her hh has been stable. her blood pressure is very labile. stool for occult blood has been ordered. pt to undergo stress test. 02/01 pt's stress test negative, spoke with cardio who reviewed her event monitor and pt will need pacemaker. tried to call niece but her numbers in the chart are not correct. spoke with nursing staff. pt given kayexalate for her hyperkalemia. Her creatinine is at baseline. stool for occult is negative. 02/02 POD 2 s/p pacemaker placement; Stress test -ve; HUY improving. orthostatic hypotension resolved; Likely DC 02/03
[2020-02-04 05:52] LABS: #Basophils 0.1 thou/uL (0.0-0.2); #Eosinphils 0.2 thou/uL (0.0-0.7); #Lymphocytes 1.6 thou/uL (1.20-3.40); #Monocytes 0.5 thou/uL (0.11-0.59); #Neutrophils 5.8 thou/uL (1.40-6.50); %Basophils 0.7 % (0.0-1.0); %Eosinophils 2.8 % (0.0-10.0); %Lymphocytes 19.5 % (21.0-51.0); %Monocytes 6.5 % (0.0-10.0); %Neutrophils 70.6 % (42.0-75.0); Hemoglobin 7.7 g/dL (12.0-16.0); Mean Corpuscular Hemoglobin 29.5 pg (27.0-31.0); Mean Platelet Volume 9.3 fL (7.4-10.4); Platelet Count 169 thou/uL (130-400); RBC Distribution Width 15.5 % (11.5-14.5); Red Blood Cell (RBC) Count 2.62 mill/uL (4.20-5.40); White Blood Cell (WBC) Count 8.2 thou/uL (4.8-10.8)
[2020-02-04] MEDS: Levothyroxine Sodium 50 MCG TAB PO SCH (06:07)
[2020-02-04 06:11] LABS: Albumin 3.3 g/dL (3.4-4.8); Anion Gap 13 mmol/L (10-20); BUN (Urea Nitrogen) 37 mg/dL (9.8-20.1); Calc. Creatinine Clearance 22 mL/min (70-130); Calcium 8.4 mg/dL (7.8-10.44); Carbon Dioxide 23 mmol/L (23-31); Chloride 109 mmol/L (98-107); Estimated GFR-MDRD 31; Glucose 123 mg/dL (83-110); Magnesium 2.3 mg/dL (1.6-2.6); Potassium 4.6 mmol/L (3.5-5.1); Sodium 140 mmol/L (136-145)
[2020-02-04] MEDS: Sodium Bicarbonate Tab 325 MG TAB PO SCH ×2 (10:57→14:41)
[2020-02-04] MEDS: Amlodipine 5 MG TAB PO SCH (10:58)
[2020-02-04] MEDS: Febuxostat 40 MG TAB PO SCH (10:58)
[2020-02-04] MEDS: hydrALAZINE 25 MG TAB PO SCH ×2 (10:58→14:41)
[2020-02-04] MEDS: Allopurinol 100 MG TAB PO SCH (10:59)
[2020-02-04] MEDS: Donepezil HCl 10 MG TAB PO SCH (10:59)
[2020-02-04] MEDS: Polyethylene Glycol 3350 17 GM Packet PO SCH (10:59)
[2020-02-04] MEDS ORDERED: Iron, Sodium Ferric Gluconate 250 MG in Sodium Chloride 0.9% 100 ML IVPB SCH (13:00)
[2020-02-04 15:59] VITALS: TEMP 97.3
[2020-02-04 16:50] VITALS: BP 156/69
[2020-02-05] MEDS ORDERED: Ferrous Sulfate 325 MG TAB PO SCH (08:00)
--- NOTE | 2020-02-05 09:20 | CCLSPC ---
INDICATION FOR PROCEDURE: An 89-year-old female with sick sinus syndrome with tachy, lisa, and pauses more than 3 seconds. She was advised to undergo dual chamber pacemaker insertion. DESCRIPTION OF PROCEDURE: She was taken to the cardiac chemistry laboratory technician, where she underwent the procedure today without difficulties or complications. She was implanted with a [employer] dual-chamber pacemaker MRI-compatible device [place] with 2 leads, 1 was a tined lead in the right atrium and screw-in lead in the right ventricle. There were no difficulties or complications encountered. The pacemaker set with the upper rate of 120, the lower rate was set at 60. The full dictated note can be found in the chart. Job ID: [id number]
--- NOTE | 2020-02-05 18:02 | DIS ---
DATE OF ADMISSION: 02/01/2020 DATE OF DISCHARGE: 02/04/2020 HOSPITAL COURSE: Ms. Carson is an 89-year-old female with medical history of coronary artery disease, tachycardia-bradycardia syndrome, and syncope, who presented with syncope. She had a syncopal event few months prior to presentation and was admitted for further workup. During that admission, she was found to have tachycardia-bradycardia syndrome and orthostatic hypotension. However, at that time, orthostatic hypotension was considered by Cardiology to be the major component of her syncopal event. She was discharged with followup appointment and an event monitor. At this admission, she presents with another syncopal episode. She was diagnosed with symptomatic tachycardia-bradycardia syndrome and orthostatic hypotension. IV fluids were administered and orthostatic hypotension resolved. Cardiology was consulted and a pacemaker was placed, after which metoprolol succinate was started. In addition to that, the patient also presented with HUY over CKD, 3. Nephrology was consulted. In addition to IV fluids, the patient was also started on oral bicarb and nephrotoxic agents including RAAS were discontinued as per Nephrology. On the day of discharge, the patient was hemodynamically stable and had no complaints. PHYSICAL EXAMINATION: VITAL SIGNS: Blood pressure 129/58, pulse 61, respiratory rate 14, oxygen saturation 99% on room air, and temperature 97.4. GENERAL: Lying comfortably in bed. Awake and alert. HEENT: Normocephalic, atraumatic. HEART: Regular rate and rhythm. No murmurs, gallops, or rubs. Left upper thorax incision C/D/I. RESPIRATORY: Clear to auscultation bilaterally. No wheezing, rales or rhonchi. GASTROINTESTINAL: Soft, nontender, and nondistended. Normal bowel sounds. EXTREMITIES: No edema. PSYCHIATRIC: Oriented x0 (baseline), calm and cooperative. MEDICATION LIST: Discontinued medications: Lisinopril as per Nephrology due to renal insufficiency. New medications: 1. Metoprolol succinate 50 mg p.o. daily. 2. Atorvastatin 20 mg p.o. at bedtime (substituting simvastatin 40 mg at bedtime). 3. Sodium bicarbonate 650 mg p.o. t.i.d. Continued medications: 1. Allopurinol. 2. Amlodipine. 3. Donepezil. 4. Febuxostat. 5. Levothyroxine. 6. Gabapentin. 7. Integra. FOLLOWUP: Appointments were scheduled with Dr. Ramon, Dr. Guallpa, and Dr. Jada Reyes, who is her primary care physician, with instructions to follow up on her hemoglobin levels as per Cardiology recommendations. Job ID: [id number]
== END 2020-02-04 17:40 | disposition home or self-care (01) | DRG 243 ==
LOC: ERS 16:06 → 2SW 17:18 → OBSVTOIN 02-01 11:03 → 2NO 02-01 20:56
PROVIDERS: ADMIT Internal Medicine; ATTEND Internal Medicine
PROC: 0JH606Z Insertion of Pacemaker, Dual Chamber into Chest Subcutaneous Tissue and Fascia, Open Approach (ICD-10-PCS; principal; 2020-02-03)
PROC: 02HK3JZ Insertion of Pacemaker Lead into Right Ventricle, Percutaneous Approach (ICD-10-PCS; 2020-02-03)
PROC: 02H63JZ Insertion of Pacemaker Lead into Right Atrium, Percutaneous Approach (ICD-10-PCS; 2020-02-03)
DX: I49.5 Sick sinus syndrome (principal); N17.9 Acute kidney failure, unspecified; N18.4 Chronic kidney disease, stage 4 (severe); E87.2 Acidosis; I95.1 Orthostatic hypotension; I25.10 Atherosclerotic heart disease of native coronary artery without angina pectoris; Z20.828 Contact with and (suspected) exposure to other viral communicable diseases; D63.1 Anemia in chronic kidney disease; F03.90 Unspecified dementia, unspecified severity, without behavioral disturbance, psychotic disturbance, mood disturbance, and anxiety; E87.5 Hyperkalemia; E11.22 Type 2 diabetes mellitus with diabetic chronic kidney disease; I12.9 Hypertensive chronic kidney disease with stage 1 through stage 4 chronic kidney disease, or unspecified chronic kidney disease; I44.0 Atrioventricular block, first degree; E78.5 Hyperlipidemia, unspecified; Z95.1 Presence of aortocoronary bypass graft; Z79.899 Other long term (current) drug therapy; Z79.890 Hormone replacement therapy
CPT/HCPCS: 33208; 36415; 36416; 36600; 70450; 71045; 78452; 80048; 80069; 81001; 82274; 82553; 82570; 82728; 83540; 83550; 83605; 83735; 84156; 84300; 84484; 84540; 85025; 85027; 87086; 87635; 93005; 93010; 93017; 96361; 96365; 96366; 96375; 96376; 97139; A9500; C1785; C1898; C9113; G0378; J0360; J0690; J1580; J1815; J2001; J2785; J2916; J3490; J7070; U0003

== ENCOUNTER 2020-02-04 21:37 | Inpatient (IN) | payer MEDICARE, MEDICAID, OTHER ==
--- NOTE | 2020-02-04 22:16 | RAD ---
Exam: Chest one view HISTORY:Patient was found down on the floor. Passed out. Pacemaker placed yesterday. Comparison: 02/03/2020 FINDINGS: Cardiac silhouette:Normal cardiac silhouette. There are sternotomy wires. Prosthetic aortic valve. Pacing device: Newly left-sided transvenous pacemaker with lead positioned over the right atrium and right ventricle. Aorta: Elongated and atherosclerotic Pulmonary vessels: Normal Costophrenic angles: Clear LUNGS: No masses or consolidation. Pneumothorax: None Osseous abnormalities: None IMPRESSION: 1. Atherosclerosis. 2. Stable left-sided transvenous pacemaker.
[2020-02-04 22:26] LABS: #Basophils 0.1 thou/uL (0.0-0.2); #Eosinphils 0.1 thou/uL (0.0-0.7); #Lymphocytes 0.8 thou/uL (1.20-3.40); #Monocytes 0.5 thou/uL (0.11-0.59); #Neutrophils 7.2 thou/uL (1.40-6.50); %Basophils 0.8 % (0.0-1.0); %Eosinophils 1.2 % (0.0-10.0); %Lymphocytes 9.6 % (21.0-51.0); %Monocytes 5.6 % (0.0-10.0); %Neutrophils 82.8 % (42.0-75.0); Hemoglobin 8.7 g/dL (12.0-16.0); Mean Corpuscular HGB CONC 31.6 g/dL (32.0-36.0); Mean Corpuscular Hemoglobin 29.8 pg (27.0-31.0); Mean Corpuscular Volume 94.1 fL (78.0-98.0); Mean Platelet Volume 9.6 fL (7.4-10.4); Platelet Count 162 thou/uL (130-400); RBC Distribution Width 15.6 % (11.5-14.5); Red Blood Cell (RBC) Count 2.91 mill/uL (4.20-5.40); White Blood Cell (WBC) Count 8.7 thou/uL (4.8-10.8)
[2020-02-04 22:42] LABS: Phosphorus 3.9 mg/dL (2.3-4.7)
[2020-02-04 22:50] LABS: ALT (SGPT) Less than 7 U/L (8-55); AST (SGOT) 15 U/L (5-34); Albumin 3.8 g/dL (3.4-4.8); Alkaline Phosphatase 61 U/L (40-110); Anion Gap 16 mmol/L (10-20); BUN (Urea Nitrogen) 38 mg/dL (9.8-20.1); Bilirubin, Total 0.4 mg/dL (0.2-1.2); Calc. Creatinine Clearance 0 mL/min (70-130); Calcium 8.6 mg/dL (7.8-10.44); Carbon Dioxide 21 mmol/L (23-31); Chloride 106 mmol/L (98-107); Estimated GFR-MDRD 29; Globulin 3.2 g/dL (2.4-3.5); Glucose 185 mg/dL (83-110); Magnesium 2.4 mg/dL (1.6-2.6); Potassium 4.8 mmol/L (3.5-5.1); Sodium 138 mmol/L (136-145)
[2020-02-04 23:32] LABS: CKMB 2.7 ng/mL (0-6.6)
[2020-02-05] MEDS ORDERED: Dextrose 50% Abboject 50 ML SYRINGE SLOW IVP PRN (00:44)
[2020-02-05] MEDS ORDERED: Insulin Regular 300 UNITS/3 ML VIAL SC PRN (00:44)
[2020-02-05] MEDS ORDERED: Dextrose 5% in Water 1,000 ML IV PRN (00:44)
[2020-02-05] MEDS ORDERED: hydrALAZINE 20 MG/ML VIAL SLOW IVP PRN (00:46)
[2020-02-05 01:47] LABS: Troponin I 0.081 ng/mL (< 0.028)
[2020-02-05 01:52] VITALS: BMI 25.2
[2020-02-05 04:40] LABS: Anion Gap 14 mmol/L (10-20); BUN (Urea Nitrogen) 36 mg/dL (9.8-20.1); Calc. Creatinine Clearance 24 mL/min (70-130); Calcium 8.3 mg/dL (7.8-10.44); Carbon Dioxide 20 mmol/L (23-31); Chloride 107 mmol/L (98-107); Estimated GFR-MDRD 34; Glucose 184 mg/dL (83-110); Potassium 4.9 mmol/L (3.5-5.1); Sodium 136 mmol/L (136-145)
[2020-02-05 04:56] LABS: Troponin I 0.065 ng/mL (< 0.028)
[2020-02-05 05:02] LABS: Band 5 % (5-11); Hemoglobin 7.9 g/dL (12.0-16.0); Lymphocytes 14 % (21-51); MDiff Complete? YES; Mean Corpuscular HGB CONC 31.7 g/dL (32.0-36.0); Mean Corpuscular Hemoglobin 30.4 pg (27.0-31.0); Mean Corpuscular Volume 95.8 fL (78.0-98.0); Mean Platelet Volume 9.2 fL (7.4-10.4); Monocytes 2 % (0-10); Platelet Count 141 thou/uL (130-400); RBC Distribution Width 15.4 % (11.5-14.5); White Blood Cell (WBC) Count 9.5 thou/uL (4.8-10.8)
[2020-02-05] MEDS: Levothyroxine Sodium 50 MCG TAB PO SCH (05:41)
[2020-02-05] MEDS: Atorvastatin Calcium 20 MG TAB PO SCH (08:25)
[2020-02-05] MEDS: Allopurinol 100 MG TAB PO SCH (08:25)
[2020-02-05] MEDS: Aspirin 81 mg Enteric Coated Tablet PO SCH (08:25)
[2020-02-05] MEDS: Heparin 5,000 UNITS/ML VIAL SC SCH ×3 (08:25→21:08)
[2020-02-05] MEDS: Lisinopril 10 MG TAB PO SCH (08:25)
[2020-02-05] MEDS: Donepezil HCl 10 MG TAB PO SCH (08:25)
[2020-02-05] MEDS: Febuxostat 40 MG TAB PO SCH (08:30)
[2020-02-05 12:02] LABS: SARS-CoV-2 MS2 Positive; SARS-CoV-2 N Gene Negative; SARS-CoV-2 S Gene Negative; SARS-CoV-2 by NAA Not Detected (NotDetected); SARS-CoV-2 orf1ab Negative
--- NOTE | 2020-02-05 17:50 | HP ---
REASON FOR ADMISSION: Loss of consciousness. HISTORY OF PRESENT ILLNESS: This is an 89-year-old female patient, who has dementia, was recently discharged from the hospital approximately 24 hours ago, where she was admitted for an episode of syncope, found to be anemic. During her stay, she was seen by Cardiology and at some point deemed to be a candidate for a pacemaker placement. When she presented, she was bradycardic and her syncope was thought to be due to that. A nuclear stress test was done that showed normal myocardial perfusion, Cardiology thought that she has tachy-lisa syndrome. After her discharge and today she was found down by her niece. Upon EMS arrival, they thought that she was in ventricular tachycardia. In the ER, her pacemaker was interrogated and it showed no evidence of ventricular tachycardia. Currently, the patient appears to be comfortable in bed. She is confused. She does have history of Alzheimer disease. I am unable to contact her niece. PAST MEDICAL HISTORY: From records, the patient has; 1. Coronary artery disease. 2. Diabetes, type 2. 3. High cholesterol. 4. High blood pressure. 5. Dementia. 6. CABG. 7. Abdominal surgery and tumor removal. SOCIAL HISTORY: Per record, she does not smoke, does not drink alcohol. FAMILY HISTORY: Unable to obtain due to her confusion. REVIEW OF SYSTEMS: Unable to obtain due to her confusion. PHYSICAL EXAMINATION: GENERAL: She is awake, alert, oriented, does not appear in distress. VITAL SIGNS: Her blood pressure is 137/63, heart rate of 64, temperature is 97.3, saturating 99% on room air. HEENT: Head is nontraumatic, normocephalic. Pupils are equal and reactive. Extraocular movements are intact. Nonicteric sclerae. Well injected conjunctivae. Oral mucosa normal. Nasal mucosa normal. NECK: Supple. No adenopathy. No murmur. Thyroid is not palpable. Trachea is midline. No supraclavicular adenopathy. HEART: S1 and S2 regular. Systolic murmur is heard. LUNGS: Clear to auscultation bilaterally. No wheezes, rhonchi, or crackles. ABDOMEN: Bowel sounds are positive. Nontender abdomen. No hepatosplenomegaly. EXTREMITIES: No lower extremity edema. No cyanosis noted. NEUROLOGIC: Cranial nerves 2 through 12 within normal limits. Normal motor function. Normal sensory function. Normal reflexes. LABORATORY DATA: Blood work shows WBC of 8.7, hemoglobin of 8.7, platelets of 162. Sodium of 138, potassium 4.8, bicarb 21, BUN 38, creatinine 1.98, which is close to her baseline. Glucose 185. Troponin 0.084, previously 0.056 on the 9th. EKG shows paced rhythm, prolonged QT. ASSESSMENT AND PLAN: This is an 89-year-old female patient, who is presenting for recurrent syncope. Pacemaker interrogation was unrevealing. Her troponin is higher than before. Cardiac: The patient will be admitted to telemetry and we will continue cycling her cardiac enzymes. We will consult Cardiology for further input. Provided with blood pressure control, I am awaiting her med rec to be done, so I could reconcile it. Endocrinology: The patient is diabetic. She will be on insulin sliding scale and continue her Synthroid. Renal system, electrolytes: The patient has chronic renal insufficiency stage 3. We will continue to monitor her labs. She was on bicarbonate, so we might resume that. For DVT prophylaxis: She will be on heparin subcutaneously. I was not able to reach her niece. The phone number on record is not functioning. For now, she will be full code. Job ID: [id number]
--- NOTE | 2020-02-05 19:57 | PRG ---
DATE OF SERVICE: 02/05/2020 SUBJECTIVE: Carson came to the hospital yesterday. Apparently with being found on the ground by her niece. There was initially some concern about ventricular tachycardia, but the pacemaker was interrogated that she has not had any evidence of that. The patient has very severe memory problems with dementia and cannot recall any of these episodes. She is feeling fine now. OBJECTIVE: VITAL SIGNS: Blood pressure 150/60, pulse 60. LUNGS: Clear. CARDIAC: Normal S1, normal S2. ASSESSMENT: 1. Episode of unresponsiveness of uncertain etiology, does not appear to be cardiac. 2. Hypertension. PLAN: 1. The patient is on atorvastatin and aspirin. 2. She is on lisinopril. 3. Probably needs to get her up and around to see if she has orthostatic hypotension. Otherwise, home any time. Job ID: [id number]
[2020-02-06] MEDS: Levothyroxine Sodium 50 MCG TAB PO SCH (05:39)
[2020-02-06] MEDS: Allopurinol 100 MG TAB PO SCH (09:09)
[2020-02-06] MEDS: Aspirin 81 mg Enteric Coated Tablet PO SCH (09:10)
[2020-02-06] MEDS: Atorvastatin Calcium 20 MG TAB PO SCH (09:10)
[2020-02-06] MEDS: Donepezil HCl 10 MG TAB PO SCH (09:10)
[2020-02-06] MEDS: Lisinopril 10 MG TAB PO SCH (09:11)
[2020-02-06] MEDS: Heparin 5,000 UNITS/ML VIAL SC SCH (09:12)
[2020-02-06] MEDS: Febuxostat 40 MG TAB PO SCH (09:12)
[2020-02-06 10:24] LABS: Neutrophil 79 % (42-75)
[2020-02-06 12:20] VITALS: BP 147/65; TEMP 97.6
--- NOTE | 2020-02-08 06:46 | DIS ---
DATE OF ADMISSION: 02/06/2020 DATE OF DISCHARGE: 02/06/2020 DISCHARGE DIAGNOSIS: Syncopal episode. HISTORY OF PRESENT ILLNESS: The patient is an 89 year old female with past medical history of coronary artery disease, type 2 diabetes, high cholesterol, high blood pressure, and dementia with a recent pacemaker placement. In the emergency department, she was found to have an elevated troponin. Interrogation of the pacemaker was unrevealing. Orthostatics were negative. The patient worked with Physical Therapy and was able to ambulate 120 feet. Cardiology did not have any further recommendations or workup while inpatient. On the day of discharge, the patient was resting comfortably in bed. She is oriented to herself which is her baseline. PHYSICAL EXAMINATION: HEART: Regular rate and rhythm. Systolic murmur was present. LUNGS: Clear to auscultation bilaterally. No wheezes. ABDOMEN: Soft, nontender, nondistended. Bowel sounds present. EXTREMITIES: She had no lower extremity edema. DISPOSITION: The patient was discharged home in stable condition with family. DISCHARGE INSTRUCTIONS: Activity as tolerated. Diet; diabetic, heart healthy. The patient is to continue home medications as prescribed. No new medications were started in the hospital. The patient is to follow up with her PCP within the week. Return precautions were given. Total time spent on discharging the patient was greater than 30 minutes. Job ID: [id number]
== END 2020-02-06 16:25 | disposition home or self-care (01) | DRG 312 ==
LOC: ERS 21:37 → 2NO 23:46 → OBSVTOIN 02-06 14:37
PROVIDERS: ADMIT Internal Medicine; ATTEND Internal Medicine
DX: R55 Syncope and collapse (principal); G30.9 Alzheimer's disease, unspecified; F02.80 Dementia in other diseases classified elsewhere, unspecified severity, without behavioral disturbance, psychotic disturbance, mood disturbance, and anxiety; I25.10 Atherosclerotic heart disease of native coronary artery without angina pectoris; E78.00 Pure hypercholesterolemia, unspecified; N18.3 Chronic kidney disease, stage 3 (moderate); E11.22 Type 2 diabetes mellitus with diabetic chronic kidney disease; I12.9 Hypertensive chronic kidney disease with stage 1 through stage 4 chronic kidney disease, or unspecified chronic kidney disease; Z95.1 Presence of aortocoronary bypass graft; Z98.890 Other specified postprocedural states; Z95.0 Presence of cardiac pacemaker; R79.89 Other specified abnormal findings of blood chemistry; Z20.828 Contact with and (suspected) exposure to other viral communicable diseases
CPT/HCPCS: 36415; 36416; 71045; 80048; 82553; 83735; 84100; 84484; 85007; 85027; 87635; 93005; J1644; U0003

== ENCOUNTER 2020-04-22 17:08 | Inpatient (IN) | payer MEDICARE, MEDICAID ==
[2020-04-22] MEDS ORDERED: Acetaminophen 650 MG Suppository PR PRN (21:25)
[2020-04-22] MEDS ORDERED: Acetaminophen 325 MG TAB PO PRN (21:25)
--- NOTE | 2020-04-22 22:06 | PDOC.HHP ---
Hospitalist HPI - History of Present Illness ED Course: DATE OF ADMISSION: 04/22/2020 TIME OF ASSESSMENT: 20:00 REASON FOR ADMISSION: Syncope HPI: Patient presents following a syncopal episode while she was sitting at her dinner table eating. She denies feeling unwell or having any preceding symptoms. States the next thing she remembers was waking up on the floor. Her niece was home with her but in another room. Patient denies any pain or major injuries from her fall. States she has had syncopal episodes in the past. They tend to happen unexpectedly according to her. She has had multiple admissions in the past due to syncope. Patient has a history of sick sinus syndrome with tachy, lisa, and pauses >3 seconds for which she underwent dual chamber pacemaker placement on 02/13/[address] Yousif. She is s/p Nuclear Medicine stress test done 01/2020 which was unremarkable. Last Echo done 10/2019 with EF of 60/-65%, moderate concentric LVH, moderate TR, mildly dilated left atrium. Aortic valve sclerosis with mild stenosis. ROS: Denies any chest pain, palpitations or sob. No edema. Has not had any lightheadedness or dizziness. Eating well without n/v. No diarrhea or abdominal pain. No urinary symptoms. All other review of systems negative. ED COURSE: Initially seen at [facility] where labs were notable for trop of 0.058. She had reported chest pain at [place] however at present she denies having had any chest pain. She does have a history of dementia memory problems. Aspirin given prior to transfer. EKG was done showing a paced rhythm. No CT Head imaging done at outside facility. Patient reportedly lowered herself to the ground, here she states she woke up on the floor. At initial presentation here she was hypertensive with a BP of 227/85. For her BP she was given Labetalol 20 mg IV x 1 and Nitro-bid 1 inch. BP improved to 170s systolic. Chest Xray done showed no acute findings. 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 She lives with her niece. Said she walks independently at home. FAMILY HISTORY: Noncontributory ALLERGIES: No known drug allergies CURRENT MEDICATIONS: allopurinol WedApr 22, 2020 19:21 ESTHER Lee Julia tablet : Strength - 100 mg : ORAL Patient Dose: 100 mg Oral once a day. Aspirin Low Dose WedApr 22, 2020 19:21 ESTHER Lee Julia tablet,delayed release (DR/EC) : Strength - 81 mg : ORAL Patient Dose: 81 mg Oral once a day. lisinopril WedApr 22, 2020 19:21 ESTHER Lee Julia tablet : Strength - 10 mg : ORAL Patient Dose: 10 mg Oral once a day. donepezil WedApr 22, 2020 19:21 ESTHER Lee Julia tablet : Strength - 10 mg : ORAL Patient Dose: 10 mg Oral once a day (in the morning). levothyroxine oral WedApr 22, 2020 19:22 ESTHER Lee Julia tablet : Strength - 50 mcg : ORAL Patient Dose: 50 mcg Oral once a day. Integra WedApr 22, 2020 19:23 ESTHER Lee Julia capsule : Strength - 125 mg-40 mg-3 mg : ORAL Patient Dose: 1 cap(s) Oral once a day. tiZANidine WedApr 22, 2020 19:23 ESTHER Lee Julia capsule : Strength - 4 mg : ORAL Patient Dose: 4 mg Oral once a day (at bedtime). hydrALAZINE oral WedApr 22, 2020 19:23 ESTHER Lee Julia tablet : Strength - 50 mg : ORAL Patient Dose: 50 mg Oral 2 times a day. atorvastatin WedApr 22, 2020 19:24 ESTHER Lee Julia tablet : Strength - 20 mg : ORAL Patient Dose: 20 mg Oral once a day (at bedtime). gabapentin WedApr 22, 2020 19:24 ESTHER Lee Julia tablet : Strength - 300 mg : ORAL Patient Dose: 300 mg Oral 2 times a day. metoprolol succinate WedApr 22, 2020 19:25 ESTHER Lee Julia tablet extended release 24 hr : Strength - 50 mg : ORAL Patient Dose: 50 mg Oral once a day. - Exam General Appearance: NAD, awake alert General - other findings: BP: 178/77, Pulse: 80, Resp: 16, Temp: 98.1 (Oral), Pain: 0, O2 sat 100% RA Eye: PERRL, anicteric sclera Eye - other findings: EOM intact ENT: normocephalic atraumatic, no oropharyngeal lesions Neck: supple, no lymphadenopathy Heart: RRR, no murmur, no gallops, no rubs, normal peripheral pulses Respiratory: CTAB, no wheezes, no rales, no ronchi, normal chest expansion Gastrointestinal: soft, non-tender, non-distended, normal bowel sounds, no guarding, no rigidity Extremities: no edema Skin: normal turgor, no lesions Neurological: cranial nerve grossly intact, normal sensation to touch Musculoskeletal: normal tone, normal strength, no muscle wasting Psychiatric: normal affect, normal behavior, oriented to person, oriented to place Hospitalist Results - Labs Lab results: Troponin I 0.036 ng/mL (< 0.028) H 04/22/20 18:15 - Radiology Interpretation Chest x-ray Status: report reviewed by me Hospitalist H&P A/P - Plan Plan: Syncope. Multiple admissions with syncope in the past. Recent dual chamber pacemaker for sick sinus w/tachy, lisa and >3 second pauses. Cardiac monitoring Interrogate pacemaker Continue to trend troponins Orthostatic BPs. Carotid US Echo done in 10/2019. CT head will be done since unable to confirm if she sustained any head injury. Monitor BP PT/OT consulted D-dimer added on by ED physician, if elevated will obtain CTA chest. (I will order a venous doppler given underlying renal function) CKD. Renal function essentially stable. Anemia. History of melena in the past. Check stool for occult blood Repeat H/H Diabetes mellitus. Accuchecks- ACHS. Insulin sliding scale initiated CAD. Resume home medications once verified. Hypertension. Monitor BP Resume home medications as appropriate once verified. Dementia. Continue to monitor for any neuro changes given potential for head injury earlier today. Currently appears to be at baseline. Gastrointestinal prophylaxis. Famotidine 20 mg BID. HLD. Resume home medications once verified. Deep venous thrombosis prophylaxis. Mechanical SCDs. Code status: The patient does not have any advanced directives in place. According to the patient, her surrogate decision maker is her niece, Sujatha Zamarripa.
[2020-04-22 22:20] LABS: Troponin I 0.032 ng/mL (< 0.028)
[2020-04-23] MEDS ORDERED: Dextrose 50% Abboject 50 ML SYRINGE SLOW IVP PRN (00:37)
[2020-04-23] MEDS ORDERED: HumaLOG 300 UNITS/3 ML VIAL SC PRN ×2 (00:37)
[2020-04-23] MEDS ORDERED: Dextrose 5% in Water 1,000 ML IV PRN (00:37)
[2020-04-23 01:38] LABS: Troponin I 0.037 ng/mL (< 0.028)
[2020-04-23 07:04] LABS: Hemoglobin 8.3 g/dL (12.0-16.0); Mean Corpuscular HGB CONC 31.1 g/dL (32.0-36.0); Mean Corpuscular Hemoglobin 27.5 pg (27.0-31.0); Mean Corpuscular Volume 88.4 fL (78.0-98.0); Mean Platelet Volume 8.8 fL (7.4-10.4); Platelet Count 245 thou/uL (130-400); RBC Distribution Width 14.9 % (11.5-14.5); Red Blood Cell (RBC) Count 3.02 mill/uL (4.20-5.40); White Blood Cell (WBC) Count 7.4 thou/uL (4.8-10.8)
[2020-04-23 07:14] LABS: Anion Gap 14 mmol/L (10-20); BUN (Urea Nitrogen) 34 mg/dL (9.8-20.1); Calc. Creatinine Clearance 0 mL/min (70-130); Calcium 8.7 mg/dL (7.8-10.44); Carbon Dioxide 21 mmol/L (23-31); Chloride 111 mmol/L (98-107); Estimated GFR-MDRD 42; Glucose 101 mg/dL (83-110); Magnesium 2.1 mg/dL (1.6-2.6); Potassium 4.2 mmol/L (3.5-5.1); Sodium 142 mmol/L (136-145)
[2020-04-23 07:37] LABS: Band 1 % (5-11); Eosinophils 2 % (0-10); Hypochromia SLIGHT = 6-15 cells (100X) (0-5/hpf); Lymphocytes 24 % (21-51); MDiff Complete? YES; Monocytes 6 % (0-10); Neutrophil 66 % (42-75); Platelet Morphology Comment Appears Adequate; Polychromasia SLIGHT = 2-3 cells (100X) (0-2/hpf); Reactive Lymphocytes 1 % (0-10)
--- NOTE | 2020-04-23 08:01 | CT ---
PRELIMINARY REPORT/[facility]/EMERGENCY AFTER HOURS PROCEDURE EXAM: CT Head Without Intravenous Contrast. CLINICAL HISTORY: PT EXPERIENCED A SYNCOPAL EPISODE AT HOME; UNSURE IF SHE HIT HER HEAD// TECHNIQUE: Axial computed tomography images of the head/brain without intravenous contrast. COMPARISON: None provided. FINDINGS: BRAIN: No acute intraparenchymal hemorrhage. No mass lesion. No CT evidence for acute territorial infarct. N o midline shift or extra-axial collection. Mild, diffuse cerebral and cerebellar atrophy. There are a few, mild, scattered, subcortical and deep white matter hypodensities which are nonspecif ic but which statistically most likely reflect changes of chronic small vessel ischemic disease. ORBITS: The orbits are unremarkable. SINUSES AND MASTOIDS: The paranasal sinuses and mastoid air cells are unremarkable. SOFT TISSUES: No significant facial or scalp soft tissue swelling evident. No radiopaque foreign body is seen. BONES: No acute skull fracture. MISCELLANEOUS: Atherosclerosis. IMPRESSION: 1. No evidence of acute intracranial abnormality. 2. Mild, diffuse cerebral and cerebellar atrophy. 3. There are a few, mild, scattered, subcortical and deep white matter hypodensities which are nonspe cific but which statistically most likely reflect changes of chronic small vessel ischemic disease. 4. Atherosclerosis. ELECTRONICALLY SIGNED BY: João Pace MD Apr 23, 2020 2:13:[address] SUPERVISOR This report is intended for review by the ordering physician only, in accordance of law. If you recei ve this report in error, please call [facility] at [phone]. FINAL REPORT Final report by Dr. Esteves Emergency after-hours study CT BRAIN NONCONTRAST: DATE: 04/23/2020 2:01 AM HISTORY: 89-year-old female status post syncope. FINDINGS: There is no evidence of acute intra-axial or extra-axial hemorrhage. There is no midline shift or any other mass effect. There is no extra-axial fluid collection. There is no evidence of obstructive hydrocephalus. Calvarium is intact. There is diffuse brain parenchymal volume loss, especially in the cerebellum. There are low attenuation areas in the white matter. These are nonspecific, but in a patient of this age, they are probably chronic ischemic white matter changes due to microvascular ath erosclerosis. No interval change compared to 01/30/2020. Agree with preliminary report by [facility]. IMPRESSION: 1) No acute intracranial findings. 2) involutional changes and chronic ischemic white matter changes. Transcribed Date/Time: 04/23/2020 8:08 AM
--- NOTE | 2020-04-23 08:21 | ULT ---
EXAM: Bilateral lower extremity venous Doppler US HISTORY: bilateral lower extremity edema and pain , Elevated d-dimer and syncope FINDINGS: Grayscale, color-flow, Doppler evaluation, spectral analysis of the bilateral lower extremities venou s structures is performed with 2-D imaging. The bilateral common femoral, superficial femoral, popliteal, posterior tibial, proximal greater saphenous and profunda femoral veins are imaged. There is normal luminal compressibility, flow, and augmentation in the visualized deep venous structu res of the bilateral lower extremities. IMPRESSION: No evidence of a deep vein thrombosis in either lower extremity.
[2020-04-23 08:49] LABS: SARS-CoV-2 MS2 Positive; SARS-CoV-2 N Gene Negative; SARS-CoV-2 S Gene Negative; SARS-CoV-2 by NAA Not Detected (NotDetected); SARS-CoV-2 orf1ab Negative
--- NOTE | 2020-04-23 08:49 | ULT ---
CAROTID DOPPLER ULTRASOUND: Date: 04/23/2020 HISTORY: Syncope. FINDINGS: Antegrade flow right vertebral artery. Elevated peak systolic velocities within the right internal ca rotid artery, mid and distal of 125 and 151 cm/second. Antegrade flow left vertebral artery. Mildly elevated peak systolic velocity of left internal carotid of 132 cm/second. IMPRESSION: 1. Mildly elevated peak systolic velocities of bilateral internal carotid arteries, 50-69% stenosis. 2. Antegrade flow both vertebral arteries. 3. Tortuous vessels negative of chronic hypertension. POS: [facility]
[2020-04-23 17:48] VITALS: BMI 24.6
--- NOTE | 2020-04-23 18:55 | PDOC.HOSPP ---
- Subjective Encounter Date: 04/23/20 Encounter Time: 17:15 Subjective: f/u for syncopal episode with essentially negative findings currently. Pt denies any specific complaints. Awaiting interrogation of pacemaker. - Objective Vital Signs & Weight: Vital Signs (12 hours) Temp Pulse Pulse Pulse Pulse Pulse Resp 04/23/20 17:43 98.3 F 67 18 04/23/20 12:50 79 74 84 72 BP BP BP BP BP Pulse Ox Pulse Ox 04/23/20 17:43 185/79 H 100 04/23/20 12:50 168/70 H 175/67 H 155/65 H 174/55 H 100 Pulse Ox 04/23/20 17:43 04/23/20 12:50 100 Weight Weight 143 lb 9.6 oz I&O: 04/22/20 04/23/20 04/24/20 06:59 06:59 06:59 Intake Total 0 Balance 0 Result Diagrams: 04/23/20 06:23 04/23/20 06:23 Additional Labs: Accuchecks 04/23/20 18:03 POC Glucose 101 H Radiology Reviewed by me: Yes (CT brain - neg; BLE dopp - neg; Carotid sono - neg) EKG Reviewed by me: Yes (Tele - paced) - Exam General Appearance: NAD, awake alert Eye: PERRL, anicteric sclera ENT: normocephalic atraumatic, no oropharyngeal lesions Neck: supple, symmetric, no JVD, no thyromegaly, no lymphadenopathy Heart: RRR, no gallops, no rubs, normal peripheral pulses Heart - other findings: S1, S2 Respiratory: CTAB, no wheezes, no rales, no ronchi, normal chest expansion, no tachypnea Gastrointestinal: soft, non-tender, non-distended, normal bowel sounds, no palpable masses Extremities: no cyanosis, no clubbing, no edema Skin: normal turgor, no lesions Neurological: cranial nerve grossly intact, no new deficit Musculoskeletal: normal tone, generalized weakness Psychiatric: normal affect, oriented to person, oriented to place Hosp A/P (1) Syncope Code(s): R55 - SYNCOPE AND COLLAPSE Status: Acute Plan: Suspect potential volume depletion or iatrogenic influence, interrogate PM device, orthostatic vitals, telemetry monitoring, PT/OT (2) CKD (chronic kidney disease), stage III Code(s): N18.3 - CHRONIC KIDNEY DISEASE, STAGE 3 (MODERATE) * DO NOT USE * Status: Chronic Plan: Avoid nephrotoxic meds and limit contrast exposure (3) CAD (coronary artery disease) Code(s): I25.10 - ATHSCL HEART DISEASE OF [place] CORONARY ARTERY W/O ANG PCTRS Status: Chronic Plan: Resume ASA/Lipitor/Metoprolol (4) Dementia Code(s): F03.90 - UNSPECIFIED DEMENTIA WITHOUT BEHAVIORAL DISTURBANCE Status: Chronic Qualifiers: Dementia type: Alzheimer's disease Plan: Resume Aricept (5) Diabetes mellitus type 2, uncontrolled, with complications Code(s): E11.8 - TYPE 2 DIABETES MELLITUS WITH UNSPECIFIED COMPLICATIONS; E11.65 - TYPE 2 DIABETES MELLITUS WITH HYPERGLYCEMIA Status: Chronic (6) Hypertension Code(s): I10 - ESSENTIAL (PRIMARY) HYPERTENSION Status: Chronic Qualifiers: Hypertension type: essential hypertension Qualified Code(s): I10 - Essential (primary) hypertension Plan: Resume home BP regimen, serial BP monitoring, Orthostatic vitals - Plan PT/OT, social media editor, out of bed/ambulate, DVT proph w/SCDs Stable currently Resume home BP regimen Orthostatic vitals pending PM interrogation PT/OT for functional assessment AM lab: BMP, CBC Convert to inpt status
[2020-04-23] MEDS ORDERED: Iron Fum,Ps Cmp/Vit C/Niacin [Integra] 1 CAPSULE Capsule PO SCH (21:00)
[2020-04-23] MEDS ORDERED: Atorvastatin Calcium 20 MG TAB PO SCH (21:00)
[2020-04-23] MEDS: Gabapentin 300 MG CAP PO SCH (22:27)
[2020-04-23] MEDS: hydrALAZINE 25 MG TAB PO SCH (22:28)
[2020-04-24] MEDS ORDERED: hydrALAZINE 20 MG/ML VIAL SLOW IVP PRN (03:58)
[2020-04-24] MEDS ORDERED: Levothyroxine Sodium 50 MCG TAB PO SCH (06:00)
[2020-04-24 07:46] LABS: #Eosinphils 0.2 thou/uL (0.0-0.7); #Lymphocytes 1.6 thou/uL (1.20-3.40); #Monocytes 0.6 thou/uL (0.11-0.59); #Neutrophils 4.2 thou/uL (1.40-6.50); %Eosinophils 3.7 % (0.0-10.0); %Lymphocytes 23.8 % (21.0-51.0); %Monocytes 8.4 % (0.0-10.0); %Neutrophils 64.1 % (42.0-75.0); Mean Corpuscular HGB CONC 29.9 g/dL (32.0-36.0); Mean Corpuscular Hemoglobin 27.4 pg (27.0-31.0); Mean Corpuscular Volume 91.8 fL (78.0-98.0); Mean Platelet Volume 9.1 fL (7.4-10.4); Platelet Count 222 thou/uL (130-400); RBC Distribution Width 14.9 % (11.5-14.5); Red Blood Cell (RBC) Count 3.28 mill/uL (4.20-5.40); White Blood Cell (WBC) Count 6.5 thou/uL (4.8-10.8)
[2020-04-24] MEDS: Gabapentin 300 MG CAP PO SCH (07:55)
[2020-04-24] MEDS: hydrALAZINE 25 MG TAB PO SCH (07:55)
[2020-04-24 08:06] LABS: Chloride 112 mmol/L (98-107); Potassium 4.2 mmol/L (3.5-5.1); Sodium 141 mmol/L (136-145)
[2020-04-24 08:07] LABS: Calcium 8.7 mg/dL (7.8-10.44); Glucose 106 mg/dL (83-110)
[2020-04-24 08:09] LABS: Anion Gap 15 mmol/L (10-20); Carbon Dioxide 18 mmol/L (23-31)
[2020-04-24 08:11] LABS: BUN (Urea Nitrogen) 31 mg/dL (9.8-20.1); Calc. Creatinine Clearance 31 mL/min (70-130); Estimated GFR-MDRD 47
[2020-04-24] MEDS ORDERED: Allopurinol 100 MG TAB PO SCH (09:00)
[2020-04-24] MEDS ORDERED: Febuxostat 40 MG TAB PO SCH (09:00)
[2020-04-24] MEDS ORDERED: Aspirin 81 mg Enteric Coated Tablet PO SCH (09:00)
[2020-04-24] MEDS ORDERED: Donepezil HCl 10 MG TAB PO SCH (09:00)
[2020-04-24] MEDS ORDERED: Lisinopril 10 MG TAB PO SCH (09:00)
[2020-04-24] MEDS ORDERED: FLU VACC QS2020-21(65YR UP)/PF 240 MCG/0.7 ML SYRINGE IM ONE (09:00)
--- NOTE | 2020-04-24 10:09 | DIS ---
DATE OF ADMISSION: 04/23/2020 DATE OF DISCHARGE: 04/24/2020 DISCHARGE DIAGNOSES: 1. Syncopal episode likely due to volume depletion versus iatrogenic influence. 2. Chronic kidney disease, stage 3. 3. Coronary artery disease, chronic and stable. 4. Sick sinus syndrome, status post pacemaker placement with normal functioning device. 5. Dementia, mild. 6. Diabetes mellitus, type 2, stable. 7. Hypertension, labile. CONSULTATIONS: None. PERTINENT LABORATORY DATA AND X-RAY FINDINGS: Creatinine ranged between 1.29 to 1.45. Estimated GFR ranged between 41 to 47. Magnesium level 2.1. Troponin I ranged between 0.032 to 0.037. D-dimer 1.72. COVID-19 PCR not detected, 04/23/2020. CBC showed a hemoglobin ranging between 8.3 to 9.0. Portable chest x-ray dated 04/22/2020, showed no acute cardiopulmonary process. CT of the brain without contrast dated 04/23/2020, showed no acute intracranial process. Chronic ischemic white matter changes noted. Bilateral lower extremity venous Doppler study dated 04/23/2020, showed no evidence for DVT. Carotid Doppler study dated 04/23/2020, showed mild bilateral internal carotid artery stenosis of 50% to 69%. HOSPITAL COURSE: The patient was observed on the telemetry unit after initially presenting status post syncopal episode. The patient with previous multiple evaluations for syncopal episodes with recent pacemaker insertion on 02/13/2020, for sick sinus syndrome. The patient underwent CT imaging of the brain, carotid Doppler and lower extremity venous Doppler studies, all with essentially negative results. The patient underwent pacemaker interrogation showing normal functioning device. The patient was noted with mild volume depletion and given IV fluids and overall remained clinically stable. The patient overall remained clinically stable throughout the hospital course and was resumed on her regular home medications. I have examined the patient at the time of discharge and discussed followup instructions. The patient verbalizes understanding and agreement, ready for discharge on 04/24/2020. DISCHARGE MEDICATIONS: 1. Allopurinol 100 mg p.o. daily. 2. Aricept 10 mg p.o. daily. 3. Lipitor 20 mg p.o. at bedtime. 4. Enteric-coated aspirin 81 mg p.o. daily. 5. Gabapentin 300 mg p.o. b.i.d. 6. Hydralazine 50 mg p.o. b.i.d. 7. Iron supplement one capsule p.o. at bedtime. 8. Levothyroxine 50 mcg p.o. daily. 9. Lisinopril 10 mg p.o. daily. 10. Metoprolol succinate 50 mg p.o. daily. 11. Tizanidine 4 mg p.o. at bedtime p.r.n. 12. Uloric 40 mg p.o. daily. FOLLOWUP: The patient may follow up with her primary care provider, Dr. Eric Elias. The patient may follow up with Dr. Eduin Yousif with Cardiology Service. CONDITION ON DISCHARGE: Stable. ACTIVITY: Ad-alvin. Rolling walker with ambulation. DIET: Heart healthy. CODE STATUS: Full. DISPOSITION: To home on 04/24/2020. Job ID: [id number]
[2020-04-24 11:44] VITALS: TEMP 97.5
[2020-04-24 12:39] VITALS: BP 109/53
--- NOTE | 2020-04-27 11:23 | EKG ---
Test Reason : Blood Pressure : / mmHG Vent. Rate : 072 BPM Atrial Rate : 072 BPM P-R Int : 290 ms QRS Dur : 110 ms QT Int : 438 ms P-R-T Axes : 000 -06 243 degrees QTc Int : 479 ms Atrial-paced rhythm with prolonged AV conduction Septal infarct , age undetermined T wave abnormality, consider inferior ischemia Abnormal ECG Confirmed by JIMBO LUIS ([id number]), senior technical editor PAIGE JHA ([id number]) on 04/27/2020 11:22:39 AM Referred By: Confirmed By:JIMBO LUIS
== END 2020-04-24 14:31 | disposition home or self-care (01) | DRG 641 ==
LOC: ERS 17:08 → ERHOLD 18:40 → 2NO 04-23 17:49 → OBSVTOIN 04-23 19:06
PROVIDERS: ADMIT Internal Medicine; ATTEND Internal Medicine
DX: E86.9 Volume depletion, unspecified (principal); R55 Syncope and collapse; I25.10 Atherosclerotic heart disease of native coronary artery without angina pectoris; E78.5 Hyperlipidemia, unspecified; F03.90 Unspecified dementia, unspecified severity, without behavioral disturbance, psychotic disturbance, mood disturbance, and anxiety; R77.8 Other specified abnormalities of plasma proteins; D64.9 Anemia, unspecified; E11.22 Type 2 diabetes mellitus with diabetic chronic kidney disease; I12.9 Hypertensive chronic kidney disease with stage 1 through stage 4 chronic kidney disease, or unspecified chronic kidney disease; N18.30 Chronic kidney disease, stage 3 unspecified; E11.65 Type 2 diabetes mellitus with hyperglycemia; I49.5 Sick sinus syndrome; Z95.0 Presence of cardiac pacemaker; Z95.1 Presence of aortocoronary bypass graft; Z79.82 Long term (current) use of aspirin; Z79.899 Other long term (current) drug therapy; Z79.890 Hormone replacement therapy; Z20.828 Contact with and (suspected) exposure to other viral communicable diseases
CPT/HCPCS: 36415; 36416; 70450; 80048; 83735; 84484; 85007; 85025; 85027; 85379; 87635; 90471; 90662; 90732; 93005; 93880; 93970; G0008; G0009; G0378; J0360; U0003

== ENCOUNTER 2020-08-06 14:47 | Inpatient (IN) | payer MEDICARE, MEDICAID ==
[~2020-08-06 14:47] MED LIST: Iopamidol-370 76% 500 ML 1 ML ONE
[2020-08-06 15:32] LABS: White Blood Cell (WBC) Count 5.1 thou/uL (4.8-10.8)
[2020-08-06 15:33] LABS: %Lymphocytes 23.7 % (21.0-51.0); %Neutrophils 65.3 % (42.0-75.0); Hemoglobin 8.6 g/dL (12.0-16.0); Mean Corpuscular HGB CONC 31.1 g/dL (32.0-36.0); Mean Corpuscular Hemoglobin 28.4 pg (27.0-31.0); Mean Corpuscular Volume 91.3 fL (78.0-98.0); Mean Platelet Volume 8.5 fL (7.4-10.4); Platelet Count 220 thou/uL (130-400); RBC Distribution Width 16.4 % (11.5-14.5); Red Blood Cell (RBC) Count 3.01 mill/uL (4.20-5.40)
[2020-08-06 15:34] LABS: #Eosinphils 0.1 thou/uL (0.0-0.7); #Lymphocytes 1.2 thou/uL (1.20-3.40); #Monocytes 0.4 thou/uL (0.11-0.59); #Neutrophils 3.4 thou/uL (1.40-6.50); %Basophils 0.8 % (0.0-1.0); %Eosinophils 2.5 % (0.0-10.0); %Monocytes 7.7 % (0.0-10.0)
[2020-08-06 17:07] LABS: ALT (SGPT) 9 U/L (8-55); AST (SGOT) 28 U/L (5-34); Albumin 3.4 g/dL (3.4-4.8); Alkaline Phosphatase 49 U/L (40-110); Anion Gap 18 mmol/L (10-20); BUN (Urea Nitrogen) 44 mg/dL (9.8-20.1); Bilirubin, Total 0.3 mg/dL (0.2-1.2); Calc. Creatinine Clearance 0 mL/min (70-130); Calcium 8.8 mg/dL (7.8-10.44); Carbon Dioxide 15 mmol/L (23-31); Chloride 115 mmol/L (98-107); Glucose 137 mg/dL (83-110); Protein, Total 7.4 g/dL (5.8-8.1); Sodium 142 mmol/L (136-145)
[2020-08-06 17:16] LABS: CKMB 2.8 ng/mL (0-6.6)
[2020-08-06 17:18] LABS: Bilirubin Negative (Negative); Blood, Urine Negative (Negative); Clarity Turbid (Clear); Glucose, Urine (Dipstick) Normal (Negative); Ketone, Urine Negative (Negative); Leukocyte 250 Leu/uL (Negative); Nitrite Negative (Negative); Protein, Urine (Dipstick) 10 mg/dL (Neg-Trace); RBC/HPF 0-3 HPF (0-3); Specific Gravity, Urine 1.021 (1.002-1.036); Urobilinogen Normal mg/dL (Less than 2)
[2020-08-06 17:19] LABS: Bacteria/HPF 1+ HPF (None Seen)
[2020-08-06 18:28] LABS: Troponin I 0.034 ng/mL (< 0.028)
[2020-08-06 19:33] LABS: Lactic Acid 1.8 mmol/L (0.5-2.2)
[2020-08-06 22:16] VITALS: BMI 24.5
[2020-08-06] MEDS ORDERED: Acetaminophen 325 MG TAB PO PRN (22:42)
[2020-08-06] MEDS ORDERED: Ondansetron PF 4 MG/2 ML Vial IVP PRN (22:42)
[2020-08-06] MEDS ORDERED: Ondansetron ODT 4 MG TAB PO PRN (22:42)
[2020-08-06 23:15] LABS: Anion Gap 16 mmol/L (10-20); BUN (Urea Nitrogen) 46 mg/dL (9.8-20.1); Calc. Creatinine Clearance 21 mL/min (70-130); Calcium 8.6 mg/dL (7.8-10.44); Carbon Dioxide 15 mmol/L (23-31); Chloride 117 mmol/L (98-107); Glucose 107 mg/dL (83-110); Potassium 5.4 mmol/L (3.5-5.1); Sodium 143 mmol/L (136-145)
[2020-08-07] MEDS ORDERED: hydrALAZINE 25 MG TAB PO SCH (00:30)
[2020-08-07 00:42] LABS: Bacteria/HPF None Seen HPF (None Seen); Bilirubin Negative (Negative); Blood, Urine Negative (Negative); Clarity Clear (Clear); Glucose, Urine (Dipstick) Normal (Negative); Ketone, Urine Negative (Negative); Leukocyte 25 Leu/uL (Negative); Nitrite Negative (Negative); Protein, Urine (Dipstick) Negative (Neg-Trace); RBC/HPF 0-3 HPF (0-3); Specific Gravity, Urine 1.037 (1.002-1.036); Urobilinogen Normal mg/dL (Less than 2); WBC/HPF 0-3 HPF (0-3); pH, Urine 5.5 (5.0-9.0)
[2020-08-07 00:46] LABS: Urine Culture Reflex No No
[2020-08-07 03:18] LABS: #Eosinphils 0.1 thou/uL (0.0-0.7); #Lymphocytes 1.6 thou/uL (1.20-3.40); #Monocytes 0.5 thou/uL (0.11-0.59); #Neutrophils 4.8 thou/uL (1.40-6.50); %Basophils 0.6 % (0.0-1.0); %Eosinophils 1.5 % (0.0-10.0); %Lymphocytes 22.4 % (21.0-51.0); %Monocytes 6.6 % (0.0-10.0); Hemoglobin 7.7 g/dL (12.0-16.0); Mean Corpuscular HGB CONC 31.9 g/dL (32.0-36.0); Mean Corpuscular Hemoglobin 28.5 pg (27.0-31.0); Mean Corpuscular Volume 89.4 fL (78.0-98.0); Mean Platelet Volume 8.6 fL (7.4-10.4); Platelet Count 195 thou/uL (130-400); RBC Distribution Width 16.4 % (11.5-14.5); Red Blood Cell (RBC) Count 2.69 mill/uL (4.20-5.40)
[2020-08-07 03:29] LABS: Troponin I 0.059 ng/mL (< 0.028)
[2020-08-07 03:55] LABS: Phosphorus 3.5 mg/dL (2.3-4.7)
[2020-08-07 03:57] LABS: Anion Gap 12 mmol/L (10-20); BUN (Urea Nitrogen) 45 mg/dL (9.8-20.1); Calc. Creatinine Clearance 22 mL/min (70-130); Calcium 8.4 mg/dL (7.8-10.44); Carbon Dioxide 17 mmol/L (23-31); Chloride 118 mmol/L (98-107); Glucose 92 mg/dL (83-110); Iron 20 ug/dL (50-170); Iron Binding Capacity, Total 264 mcg/dL (265-497); Sodium 142 mmol/L (136-145)
[2020-08-07 04:42] LABS: SARS-CoV-2 PCR by NAA Not Detected (NotDetected)
[2020-08-07 05:41] LABS: Ferritin 18.29 ng/mL (10-291)
[2020-08-07] MEDS: hydrALAZINE 25 MG TAB PO SCH ×2 (09:31→20:38)
[2020-08-07] MEDS: Enoxaparin Sodium 30 MG/0.3 ML SYRINGE SC SCH (09:31)
[2020-08-07] MEDS ORDERED: tiZANidine HCl 4 MG TAB PO PRN (13:35)
[2020-08-07] MEDS: Gabapentin 300 MG CAP PO SCH (20:38)
[2020-08-07] MEDS: Atorvastatin Calcium 20 MG TAB PO SCH (20:38)
[2020-08-07] MEDS ORDERED: IRON FUM PS CMP PO SCH (21:00)
[2020-08-07] MEDS ORDERED: NIACIN PO SCH (21:00)
[2020-08-07] MEDS ORDERED: VIT C PO SCH (21:00)
[2020-08-08] MEDS: Levothyroxine Sodium 50 MCG TAB PO SCH (05:14)
[2020-08-08 05:15] LABS: #Eosinphils 0.2 thou/uL (0.0-0.7); #Lymphocytes 1.9 thou/uL (1.20-3.40); #Monocytes 0.5 thou/uL (0.11-0.59); #Neutrophils 3.1 thou/uL (1.40-6.50); %Basophils 0.6 % (0.0-1.0); %Eosinophils 3.9 % (0.0-10.0); %Lymphocytes 32.9 % (21.0-51.0); %Monocytes 8.1 % (0.0-10.0); %Neutrophils 54.5 % (42.0-75.0); Hemoglobin 7.4 g/dL (12.0-16.0); Mean Corpuscular HGB CONC 31.2 g/dL (32.0-36.0); Mean Corpuscular Hemoglobin 28.2 pg (27.0-31.0); Mean Corpuscular Volume 90.2 fL (78.0-98.0); Mean Platelet Volume 9.5 fL (7.4-10.4); Platelet Count 173 thou/uL (130-400); RBC Distribution Width 16.4 % (11.5-14.5); Red Blood Cell (RBC) Count 2.64 mill/uL (4.20-5.40); White Blood Cell (WBC) Count 5.7 thou/uL (4.8-10.8)
[2020-08-08] MEDS: Enoxaparin Sodium 30 MG/0.3 ML SYRINGE SC SCH (09:29)
[2020-08-08] MEDS: Febuxostat 40 MG TAB PO SCH (09:29)
[2020-08-08] MEDS: Allopurinol 100 MG TAB PO SCH (09:30)
[2020-08-08] MEDS: Donepezil HCl 10 MG TAB PO SCH (09:30)
[2020-08-08] MEDS: hydrALAZINE 25 MG TAB PO SCH ×2 (09:31→20:12)
[2020-08-08] MEDS: Gabapentin 300 MG CAP PO SCH ×2 (09:31→20:11)
[2020-08-08] MEDS: Aspirin 81 mg Enteric Coated Tablet PO SCH (09:32)
[2020-08-08 12:16] LABS: Glucose 145 mg/dL (83-110)
[2020-08-08 12:20] LABS: BUN (Urea Nitrogen) 46 mg/dL (9.8-20.1)
[2020-08-08 12:31] LABS: Anion Gap 15 mmol/L (10-20); Calc. Creatinine Clearance 22 mL/min (70-130); Calcium 8.6 mg/dL (7.8-10.44); Carbon Dioxide 14 mmol/L (23-31); Chloride 118 mmol/L (98-107); Potassium 6.1 mmol/L (3.5-5.1); Sodium 141 mmol/L (136-145)
[2020-08-08] MEDS ORDERED: Senokot S 8.6-50 MG TAB PO SCH (12:45)
[2020-08-08] MEDS: Ferrous Sulfate 325 MG TAB PO SCH (16:31)
[2020-08-08] MEDS: Senokot S 8.6-50 MG TAB PO SCH (20:12)
[2020-08-08] MEDS: Atorvastatin Calcium 20 MG TAB PO SCH (20:13)
[2020-08-08 22:56] LABS: Potassium 5.5 mmol/L (3.5-5.1)
[2020-08-09 04:35] LABS: Hemoglobin 8.3 g/dL (12.0-16.0); Mean Corpuscular HGB CONC 31.6 g/dL (32.0-36.0); Mean Corpuscular Hemoglobin 28.5 pg (27.0-31.0); Mean Corpuscular Volume 90.2 fL (78.0-98.0); Mean Platelet Volume 8.7 fL (7.4-10.4); Platelet Count 206 thou/uL (130-400); RBC Distribution Width 16.5 % (11.5-14.5); Red Blood Cell (RBC) Count 2.89 mill/uL (4.20-5.40); White Blood Cell (WBC) Count 7.1 thou/uL (4.8-10.8)
[2020-08-09 04:59] LABS: Anion Gap 13 mmol/L (10-20); BUN (Urea Nitrogen) 40 mg/dL (9.8-20.1); Calc. Creatinine Clearance 22 mL/min (70-130); Calcium 8.5 mg/dL (7.8-10.44); Carbon Dioxide 19 mmol/L (23-31); Chloride 112 mmol/L (98-107); Glucose 146 mg/dL (83-110); Potassium 4.7 mmol/L (3.5-5.1); Sodium 139 mmol/L (136-145)
[2020-08-09] MEDS: Levothyroxine Sodium 50 MCG TAB PO SCH (05:04)
[2020-08-09] MEDS: Ferrous Sulfate 325 MG TAB PO SCH (08:25)
[2020-08-09] MEDS: Donepezil HCl 10 MG TAB PO SCH (08:25)
[2020-08-09] MEDS: Senokot S 8.6-50 MG TAB PO SCH (08:25)
[2020-08-09] MEDS: Gabapentin 300 MG CAP PO SCH (08:25)
[2020-08-09] MEDS: hydrALAZINE 25 MG TAB PO SCH (08:25)
[2020-08-09] MEDS: Allopurinol 100 MG TAB PO SCH (08:25)
[2020-08-09] MEDS: Aspirin 81 mg Enteric Coated Tablet PO SCH (08:25)
[2020-08-09] MEDS: Enoxaparin Sodium 30 MG/0.3 ML SYRINGE SC SCH (08:26)
[2020-08-09] MEDS: Febuxostat 40 MG TAB PO SCH (08:26)
[2020-08-09 11:37] VITALS: BP 164/66; TEMP 97.5
== END 2020-08-09 15:34 | disposition home health service (06) | DRG 683 ==
LOC: ERS 14:47 → 2NO 20:03
PROVIDERS: ADMIT Student in an Organized Health Care Education/Training Program; ATTEND Internal Medicine
DX: N17.9 Acute kidney failure, unspecified (principal); I24.8 Other forms of acute ischemic heart disease; E87.2 Acidosis; R55 Syncope and collapse; Z20.822 Contact with and (suspected) exposure to COVID-19; I25.10 Atherosclerotic heart disease of native coronary artery without angina pectoris; E11.22 Type 2 diabetes mellitus with diabetic chronic kidney disease; E78.5 Hyperlipidemia, unspecified; I12.9 Hypertensive chronic kidney disease with stage 1 through stage 4 chronic kidney disease, or unspecified chronic kidney disease; F03.90 Unspecified dementia, unspecified severity, without behavioral disturbance, psychotic disturbance, mood disturbance, and anxiety; D63.1 Anemia in chronic kidney disease; N18.30 Chronic kidney disease, stage 3 unspecified; E27.8 Other specified disorders of adrenal gland; K80.20 Calculus of gallbladder without cholecystitis without obstruction; E87.5 Hyperkalemia; Z95.0 Presence of cardiac pacemaker; Z95.1 Presence of aortocoronary bypass graft; Z79.84 Long term (current) use of oral hypoglycemic drugs; Z79.82 Long term (current) use of aspirin; Z79.899 Other long term (current) drug therapy; Z91.81 History of falling
CPT/HCPCS: 36415; 36416; 70450; 71045; 71275; 80048; 80053; 81003; 81015; 82274; 82553; 82607; 82728; 83540; 83550; 83605; 84100; 84443; 84484; 85025; 85027; 85379; 87635; 93005; 93306; J1650; Q9967; U0003; U0005